=== PATIENT | male | born 1975 | race Caucasian/White ===

== ENCOUNTER 2023-09-17 13:55 | Inpatient (IN) | payer OTHER, SELFPAY ==
[2023-09-17] VITALS (11 sets, daily range): BP systolic 74–128; BP diastolic 33–64; BMI 31.5; BMI 31.2
[2023-09-17 11:20] LABS: % Basophils 0.2 % (0-2); % Eosinophils 0.2 % (0-6); % Immature Granulocytes 0.3 % (0-0.5); % Lymphocytes 12.9 % (20.5-51.1); % Monocytes 6.8 % (1.7-9.3); % Neutrophils 79.6 % (42.2-75.2); Absolute Lymphocytes 1.6 10^3/uL (1.2-3.4); Absolute Monocytes 0.8 10^3/uL (0.1-0.6); Absolute Neutrophils 9.6 10^3/uL (1.4-6.5); Hematocrit 41.4 % (39.0-52.0); Hemoglobin 14.7 g/dL (13.0-18.0); Mean Corp Hgb Conc. 35.5 g/dL (33.0-37.0); Mean Corpuscular Hgb 29.6 pg (27.0-31.0); Mean Corpuscular Volume 83.3 fL (80.0-94.0); Mean Platelet Volume 9.4 fL (7.4-10.4); Nucleated Red Blood Cells % 0 % (-); Platelet Count 236 10^3/uL (130-400); Red Blood Cell Count 4.97 10^6/uL (4.70-6.10); Red Cell Dist. Width 12.7 % (11.5-14.5)
[2023-09-17 11:31] LABS: ALT (SGPT) 19 U/L (0-50); AST (SGOT) 25 U/L (17-59); Albumin 3.9 g/dl (3.5-5.0); Alkaline Phosphatase 58 U/L (38-126); Blood Urea Nitrogen 24 mg/dl (9-20); Calcium 9.3 mg/dl (8.4-10.2); Carbon Dioxide 25 mmol/L (22-30); Chloride 106 mmol/L (98-107); Estimated Creatinine Clearance 99 ml/min; Glucose 111 mg/dl (70-99); Potassium 4.2 mmol/L (3.5-5.1); Sodium 136 mmol/L (135-145); Total Bilirubin 1.1 mg/dl (0.2-1.3); Total Protein 6.5 g/dl (6.3-8.2); eGFR > 60.00
[2023-09-17 11:33] LABS: D-Dimer 0.44 ug/mlFEU (0.00-0.50)
[2023-09-17 11:44] LABS: COVID-19 Antigen Negative (Negative)
[2023-09-17 11:46] LABS: Troponin I 0.618 ng/ml
--- NOTE | 2023-09-17 12:34 | PHANOTE ---
09/17/2023, [facility], spoke to pt. to obtain their med. history; pt. orders his Naltrexone 50 mg online through [employer] per pt.; was not able to confirm with pharmacy fill or [facility]W.
--- NOTE | 2023-09-17 12:47 | ED.GENMED ---
History of Present Illness
General
Chief Complaint: Chest Pain
Source: patient and spouse
Exam Limitations: none
Time Seen by Provider: 09/17/23 11:18
Travel History
Have you had any contact with someone who has COVID-19?: No
Do you have any symptoms of coronavirus? Fever > 100 degrees, chills, cough, shortness of breath, sore throat, loss of taste or smell, muscle aches, or headache?: No
History of Present Illness
History of Present Illness:
47-year-old male who presents after concerned about being short of breath. He also reported chest tightness yesterday. He states yesterday he woke up and got concerned that he lost his checkbook. He ran out of the car and developed pressure
across his chest. He felt extremely short of breath and laid back down. His is a nurse noticed that his heart rate was erratic as well. The patient does have a history of hypertension but at that time he was drinking alcohol and since has
become sober and has not needed blood pressure medications. He is otherwise healthy. Today woke up and again felt short of breath. He did have a little bit of a cough last night but that is resolved today. No fevers. No hemoptysis. No some
mucus production. Patient has no further chest pain and feels better at rest. Is a little bit hypoxic on arrival and feels a little better with oxygen support. No nausea or vomiting. No back pain. He states his father had a blood clot when he
was in his 40s.
Past History
Past History
ED Past Medical History: HTN
Social History
Alcohol: Former
Phy Exam
Physical Exam
Physical Exam:
CONSTITUTIONAL Patient alert and oriented to person, place and time. Well-appearing. Vital signs reviewed.
HEAD atraumatic, normocephalic.
EYES eyelids normal to inspection, Pupils equally round and reactive to light, Extraocular muscles intact, Conjunctiva normal, Sclera normal.
NECK normal range of motion, Trachea midline, no jugular venous distention.
RESPIRATORY CHEST No respiratory distress noted, Chest expansion equal, Bilateral breath sounds clear.
CARDIOVASCULAR regular rate and rhythm, 2 out of 6 murmur noted
ABDOMEN abdomen nontender, Bowel sounds normal. No distention.
BACK normal inspection, no obvious deformities
UPPER EXTREMITY range of motion normal, Motor strength normal, no cyanosis, no edema.
LOWER EXTREMITY range of motion normal, Motor strength normal, no cyanosis, no edema.
NEURO Speech normal, No focal motor deficits, Geneva coma scale 15, Memory normal, Cranial Nerves intact to screening exam.
SKIN skin warm, dry, and normal in color.
PSYCHIATRIC patient oriented to person place and time, Normal affect.
Scores
Heart Score for Chest Pain Patients
STEMI patient?: Not applicable
Course
Orders/Labs/Results
Orders:
Orders
09/17/23 10:29
ECG [Electrocardiogram (*1)] Urgent
Reason for Study: Chest Pain
EKG- Treatment ONCE
09/17/23 11:02
Complete Blood Count/With Diff Urgent
Comprehensive Metabolic Panel Urgent
NT-proBNP Urgent
Troponin I Urgent
09/17/23 11:04
COVID-19 Antigen Urgent
Source: Nasal Swab
09/17/23 11:13
D-Dimer Urgent
PTT Urgent
Comment: ADD ON
09/17/23 11:14
CXR2 [CR Chest - 2 Views ] Urgent
Comment:
Reason For Exam: SOB
09/17/23 11:38
CT Chest Pe Study Urgent
Comment:
Reason For Exam: sob, fam hx of PE.
09/17/23 11:39
Electrocardiogram (*1) Stat
Reason for Study: Other
Other Reason for Exam: chest pain
EKG- Treatment ONCE
09/17/23 12:19
Heparin 4,000 units IV NOW STA
Nursing to Place Non Medication Order As Directed
Physician Order: PTT 6 hours after initial start of Heparin infusion
Above order entered?: Yes
09/17/23 12:30
Add On- LAB Stat
Tests Added?: BNP
Heparin 86780 Units/250 ml 25,000 units in 250 ml IV PER PROTOCOL
Weight to be used for heparin protocol in kilograms (kg):: 111.13
Protocol:: Cardiac Tx/Acute Coronary
PTT Goal Range to be used:: PTT 73 to 111 seconds
Order type:: Initial
INITIAL Infusion Dose (UNITS/KG/hr) & then follow protocol:: 12 units/kg/hr
Infusion Dose in UNITS/hr & then follow protocol (UNITS/hr):: 1,000
INFUSION RATE in mL/hr & then follow protocol (mL/hr):: 10
PTT less than or equal to 64 seconds:: Increase rate by 200 units/hr (+ 2 mL/hr)
PTT 64.1 to 72.9 seconds:: Increase rate by 100 units/hr (+ 1 mL/hr)
PTT 73 to 111 seconds:: Target Range. No change in rate.
PTT 111.1 to 130.9 seconds:: Decrease rate by 100 units/hr (- 1 mL/hr)
PTT 131 to 199.9 seconds:: HOLD for 1 hr. Then decrease rate by 200 units/hr (- 2 mL/hr)
PTT greater than or equal to 200 seconds:: HOLD for 2 hrs & Notify Provider. Then decrease by 200 units/hr (-
2 mL/hr)
Lab follow-up:: Each change, PTT q6h until 2 consecutive are therapeutic. Then PTT
daily.
09/17/23 12:54
Add On- LAB Urgent
Tests Added?: PTT
09/17/23 13:28
Admit/Transfer Patient As Directed
Co-Sign Provider:
Level of Care: Inpatient admission
Assign to:: IVU
Physician / Group: meagan soto
Diagnosis: cp concer USA, new cardiac murmur,hypoxic reesp insuff
Reason for Hospitalization: cp concer USA, new cardiac murmur,hypoxic reesp insuff
Expected length of stay greater than two midnights?: Yes
ELOS- Estimated Length of Stay in days: 4
I certify the patient meets the requirements for IP care: Yes
Code Status As Directed
Resuscitation Status: Full Code
CARDIOLOGY CONSULT Routine
Consulting Provider: Donis Cabral
Was physician already notified: Yes
Reason for consult: cp concern usa, new cardiac murmur
09/17/23 13:44
Echo 2D MMode Color/Doppler Urgent
Reason for Study: hypoxia , cardiac murmur
09/17/23 13:45
Echo 2D MMode Color/Doppler Routine
Reason for Study: cardiac murmur, hypoxia
09/17/23 14:03
Procalcitonin Urgent
PCT Algorithmm Indication: Respiratory
Troponin I Routine
09/17/23 14:54
Acetaminophen [Tylenol] 650 mg PO DAILYPRN PRN
Bisacodyl [Dulcolax] 10 mg RECTAL [id number] PRN
Docusate W/Senna [Senokot-S] 1 tablet PO BIDPRN PRN
Polyethylene Glycol Powder [Miralax] 17 grams PO DAILYPRN PRN
09/17/23 14:54
VTE Contraindication Routine
VTE Mechanical Device Contraindication: Medical Contraindication
Pharmocologic Contraindication: Medical Contraindication
Comment: pt on iv heparin
Heparin Protocol- PTT Orders As Directed
PTT per Heparin protocol: -Obtain CBC and baseline PTT - if not already collected.
-Obtain PTT 6 hours from start of infusion. Then, every 6 hours until 2 consecutive
PTT's are therapeutic. Then, PTT Daily.
-With each rate change, obtain PTT every 6 hours until 2 consecutive PTT's are
therapeutic. Then, PTT Daily.
Activity As Directed
Activity Level: As Tolerated
Intake/ Output As Directed
Frequency: Per unit guidelines
Notify MD As Directed
Notify physician if: PTT is greater than or equal to 200.
Vital Signs As Directed
Frequency: Per unit guidelines
Weight As Directed
Frequency: Daily
O2 Therapy [RESP] Routine
Nasal Cannula Liter Flow: 2 LPM
Titrate/Wean O2 to maintain O2 sat greater than (%): 92
Pulse Ox/spot Check [RESP] Routine
Quantity: 1
Ot Eval And Treat Routine
Pt Eval And Treat Routine
Activity Level: As Tolerated
09/17/23 19:30
PTT Routine
09/17/23 20:00
Troponin I Q6H
09/18/23 06:00
Cardiovascular Evaluation IN AM
Complete Blood Count/With Diff IN AM
Comprehensive Metabolic Panel IN AM
09/19/23 06:00
Complete Blood Count/No Diff Q2D
Comment: notify provider: Platelet count < 130,000 or decrease by 50% from baseline
Complete Blood Count/With Diff IN AM
Comprehensive Metabolic Panel IN AM
09/20/23 06:00
Complete Blood Count/With Diff IN AM
Comprehensive Metabolic Panel IN AM
09/21/23 06:00
Complete Blood Count/No Diff Q2D
Comment: notify provider: Platelet count < 130,000 or decrease by 50% from baseline
Complete Blood Count/With Diff IN AM
Comprehensive Metabolic Panel IN AM
09/23/23 06:00
Complete Blood Count/No Diff Q2D
Comment: notify provider: Platelet count < 130,000 or decrease by 50% from baseline
09/25/23 06:00
Complete Blood Count/No Diff Q2D
Comment: notify provider: Platelet count < 130,000 or decrease by 50% from baseline
09/27/23 06:00
Complete Blood Count/No Diff Q2D
Comment: notify provider: Platelet count < 130,000 or decrease by 50% from baseline
09/29/23 06:00
Complete Blood Count/No Diff Q2D
Comment: notify provider: Platelet count < 130,000 or decrease by 50% from baseline
10/01/23 06:00
Complete Blood Count/No Diff Q2D
Comment: notify provider: Platelet count < 130,000 or decrease by 50% from baseline
10/03/23 06:00
Complete Blood Count/No Diff Q2D
Comment: notify provider: Platelet count < 130,000 or decrease by 50% from baseline
Abnormal Lab Results
09/17/23 09/17/23
11: 11:13
WBC 12.0 H 10^3/uL
(4.8-10.8)
Absolute Neuts (auto) 9.6 H 10^3/uL
(1.4-6.5)
Absolute Monos (auto) 0.8 H 10^3/uL
(0.1-0.6)
Neutrophils % 79.6 H %
(42.2-75.2)
Lymphocytes % 12.9 L %
(20.5-51.1)
APTT 35.6 H Sec
(23.4-35.0)
BUN 24 H mg/dl
(9-20)
Glucose 111 H mg/dl
(70-99)
Troponin I 0.618 H* ng/ml
09/17/23 11:02
09/17/23 11:02
Vital Signs
Initial and Last Documented VS:
Initial Vital Signs
Temp Pulse Resp BP
97.8 F 116 20 103/64
09/17/23 10:27 09/17/23 10:27 09/17/23 10:27 09/17/23 10:27
Last Documented Vital Signs
Temp Pulse Resp BP Pulse Ox
99.3 F 86 16 121/47 96
09/17/23 15:27 09/17/23 15:30 09/17/23 15:27 09/17/23 15:27 09/17/23 15:27
MDM/Problems Addressed
Differential Diagnosis Includes:
Acute IL, ACS, unstable angina, pulmonary embolism, pneumothorax, pneumonia, aortic dissection
MDM/Problems Addressed:
Hypoxia, SVT, unstable angina NSTEMI
*Radiology
Radiology exam reviewed: preliminary read by ED provider (No obvious large vessel pulmonary embolism) and radiology read reviewed
*Pulse Oximetry
Patient hypoxic: yes
*EKG
Interpreted by ED Provider?: Yes
Interpretation: abnormal
Rate: tachycardiac
Rhythm: sinus
Ischemia: ST depression (Suspected in lateral leads)
*Insurance Customer Service Specialist Interpretation
Rate: tachycardiac
Interpretation: abnormal
Rhythm: SVT
*Critical Care Note
Total Time (30-74mins, 75-104mins- exclusive of procedures): 60 minutes
Data Reviewed
Source: patient and spouse
Prescriptions/Medications Considered But Not Given:
Consider beta-blockade but heart rate at rest is normal blood pressure okay.
Patient Management
Discussion with other providers: Hospitalist and Pattern Molder (Case discussed with Dr. Cabral.)
Escalation/DeEscalation of care consider admission/obs:
38-year-old male presented to develop chest pain shortness of breath yesterday and shortness of breath worsened over the last night with some chest pain today. Initial EKG showed a little bit of ST depression laterally. Repeat EKG is actually low
but improved. Did have a run of what looks like SVT that was brief on telemetry. CT without pulmonary embolism. Does not have history consistent with pneumonia as radiology does read possible pneumonia. Question whether this could be CHF. May
benefit from echocardiogram given murmur. Cardiology to evaluate. IV heparin. Admit
ED Attending Note
-
Portions of this chart may have been created with voice recognition software.� Occasional wrong word or��sound alike� substitutions may have occurred due to the inherent limitations of voice recognition software.
Discharge Plan
Departure
Patient Disposition: Admit
Date of Disposition: 09/17/23
Time of Disposition: 12:47
Admit to: Telemetry
Presentation/result/management discussed w/ accepting MD/DO: Hospitalist
Discharge Problem:
Unstable angina, Tachyarrhythmia, Hypoxia
Interventions
Interventions:
*Risk Screen - Suicide Last Done: 09/17/23 10:55
*General Assessment Last Done: 09/17/23 10:56
*Neglect/Abuse Screening Last Done: 09/17/23 10:55
ED- Fall Risk Assessment Last Done: 09/17/23 10:53
*ED COVID-19 Vaccine History Last Done: 09/17/23 10:27
*Nursing Disposition Last Done: 09/17/23 14:50
ED- Cardiac Assessment Last Done: 09/17/23 10:58
Discharge Date and Time
Discharge Date/Time: 09/17/23 14:54
--- NOTE | 2023-09-17 13:00 | HPS.HSE ---
Family Physician
-
Family Physician: NOT KNOW UNKNOWN - PT DOES
Chief Complaint
-
Chest pain, shortness of breath, MATHIS
History of Present Illness
47-year-old male complaining of chest tightness midsternal to both arms with diaphoresis and nausea yesterday after running to the car looking for his checkbook he thought he lost. He reports having dyspnea on exertion came in the house and went to
lay back down. 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 His believes the entire episode lasted approximately 20 minutes. He has past medical history of
hypertension but at the time was drinking alcohol and became sober over the last 101 days and no longer needed BP meds. This a.m. he reports feeling short of breath upon wakening with some midsternal chest pressure. On arrival to the ER his pulse
ox is 89% on room air and 93% on 2 L nasal cannula. He denies any recent illness, sore throat fever, chills, palpitations, shortness of breath, cough, abdominal pain, nausea, vomiting, diarrhea, urinary symptoms. He has past medical history of
hypertension, alcohol abuse currently sober 101 days, sleep apnea noncompliant with CPAP
Medical History
Past Medical History
Past Medical History: Reports Other
Additional Past Medical History:
hypertension
alcohol abuse currently sober 101 days
sleep apnea noncompliant with CPAP
diverticulitis mid 30s
Anxiety
Past Surgical History: Reports Other (Deviated septum repair, EGD/[place] mid 30s)
Social History
Tobacco: Non-smoker
Alcohol: Former (Sober 101 days from prior daily vodka)
Drug: None
Personal:
Living: With Family ()
Employment: Employed
Family History
Family History: Other (Father age 45 PE, history lung cancer, mother Parkinson's, brother living history sleep apnea)
Allergies / Home Medications
Allergies reflects when Allergies were last updated in [employer].
Home Medications with original date entered in [employer]
Allergy/Medication List:
Allergies
Allergy/AdvReac Type Severity Reaction Status Date / Time
shrimp Allergy throat Verified 09/17/23 10:54
swelling
Home Medications
acetaminophen 325 mg tablet (Tylenol) 650 mg PO DAILYPRN PRN mild pain 09/17/23
naltrexone 50 mg tablet 50 mg PO QPM 09/17/23
naproxen sodium 220 mg capsule (Aleve) 440 mg PO DAILY PRN mild pain 09/17/23
Review of Systems
-
History Source: Patient and Family ( at bedside)
A 12 point ROS was completed and negative except as noted: Yes
Constitutional: Denies Fever, Fatigue or Chills
EENT: Denies Sore Throat or Runny Nose
Respiratory: Reports Trouble Breathing (MATHIS); Denies Cough
Cardiac: Reports Chest Pain, Diaphoresis and Palpitations; Denies Syncope
Abdomen/GI: Reports Nausea; Denies Abdominal Pain, Vomiting, Diarrhea, Constipated, Bloody Stools or Black Stools
: Denies Dysuria, Frequency, Flank Pain, Incontinence, Difficulty Voiding or Urgency
Musculoskeletal: Denies Joint Pain or Edema
Skin: Denies Itching or Rash
Neurological: Denies Dizzy, Headache or Weakness
Endocrine: Reports No Symptoms
Hematologic/Lymphatic: Reports No Symptoms
Psych: Reports Calm
Physical Exam
Vital Signs
Vital Signs
Temp Pulse Resp BP Pulse Ox
97.8 F 91 18 121/54 93
09/17/23 10:27 09/17/23 12:15 09/17/23 12:15 09/17/23 11:00 09/17/23 12:15
Physical Exam
General: No Apparent Distress, Comfortable and Conversant; No Pain, Fever or Chills
HEENT: NormoCephalic, Anicteric, Moist mucous membranes, PERRLA, [place] Conjunctivae, No Ptosis and Neck Nontender; No Pharyngeal Efythema
Cardiac: S1/S2, Regular Rhythm (With PACs) and Murmur (Holosystolic murmur 4/6 loudest at tricuspid area); No Rub, Gallop or Peripheral Edema
Breast: Deferred by me
GI: Soft, Non Tender, Non Distended, Normal Bowel Sounds and No Hepatosplenomegaly
Rectal: Deferred by Provider
Genito-urinary: Deferred by me
Musculoskeletal: No Clubbing, No Cyanosis and No Edema
Skin: Warm and Dry; No Rash
Neuro: AO x 3, No Motor Deficits, Nonfocal/grossly intact, Cranial Nerves Intact and No Sensory Deficits; No Slurred Speech, Facial Droop or Tremors
Psych: Calm
Laboratory Results
-
09/17/23 11:02
09/17/23 11:02
Laboratory Results
APTT Cancelled 09/17/23 12:19
Total Bilirubin 1.1 mg/dl (0.2-1.3) 09/17/23 11:02
AST 25 U/L (17-59) 09/17/23 11:02
ALT 19 U/L (0-50) 09/17/23 11:02
Alkaline Phosphatase 58 U/L (38-126) 09/17/23 11:02
Troponin I 0.618 ng/ml H* 09/17/23 11:02
Data Reviewed
-
CT Scan: Report Reviewed by me
Lab Data: Labs Reviewed by me
Impression/Plan
-
Impression/plan:
Admit to IVU
#Chest pain concern USA
COVID-negative
Troponin 0.618, will trend
-IV heparin drip
-Follow EKG
-Consult cardiology
-Check urine drug screen
EKG: Sinus rhythm with PVCs 92 bpm, QTc 472 MS, incomplete RBBB
#Acute hypoxic respiratory insufficiency 2/2 possible NEW CARDIAC MURMUR versus possible right PNA
89% RA, 93% 2 L nasal cannula
-WBC 12 no left shift, afebrile, nontoxic-appearing,BNP 2470
-Hold on current antibiotics pending Pro-Kennedy
-Check Pro-Kennedy
-Check 2D echo
CT PE study:
1. No evidence of PE
2. Mild pneumonia throughout the right lung
3. Small right and trace left pleural effusions
#Hx of Sleep apnea noncompliant with CPAP
#Alcohol abuse currently sober 101 days
-Prior vodka use daily
-Patient reports uses naltrexone 50 mg every afternoon to stop drinking
#Anxiety hx
#Diverticulitis Hx mid 30s
-Prior history of EGD [place]
DVT prophylaxis
Patient on current IV heparin
Full code
[2023-09-17 13:06] LABS: NT-proBNP 2470 pg/ml
[2023-09-17 13:08] LABS: APTT 35.6 Sec (23.4-35.0)
[2023-09-17] MEDS: HEPARIN 4000 UNITS IV (13:18)
[2023-09-17] MEDS: HEPARIN 25000 UNITS/250 ML IV (13:18)
--- NOTE | 2023-09-17 13:57 | W.PN.UPDATE ---
Update Note
Progress Note Update
This note is in addition to H&P
I saw and examined the patient.
The THERAPY TECH or PA's note was reviewed and I agree with the note.
Comment: 47-year-old male with past medical history of drug use (long time ago), alcohol came to the hospital with shortness of breath. Elevated BNP and troponin ED. Trend troponin. EKG with nonspecific ST abnormality. Cardiology evaluation.
Echo. Admit to IVU. Start heparin drip. CT chest with possible pneumonia, check procal. If Pro-Kennedy elevated then start antibiotics.
General: No Apparent Distress, Comfortable
HEENT: NormoCephalic, Anicteric
Cardiac: S1/S2, Regular Rhythm and Murmur (Holosystolic murmur 4/6 loudest at tricuspid area)
Breast: Deferred by me
GI: Soft, Non Tender, Non Distended, Normal Bowel Sounds and No Hepatosplenomegaly
Rectal: Deferred by Provider
Genito-urinary: Deferred by me
Musculoskeletal: No Edema
Neuro: AO x 3, No Motor Deficits, Nonfocal/grossly intact
Psych: Calm
I spent a total of 78 minutes with the patient or on the floor. More than 50% of this time involved counseling and coordination of care.
[2023-09-17 15:07] LABS: Procalcitonin < 0.05 ng/ml (0.0-0.25)
--- NOTE | 2023-09-17 15:24 | PTCARENOTE ---
Patient arrived from ER, monitor placed, NSR, VSS although low grade temp. 99.3. patient has no CP but does admit being SOB. o2 2LNC o2 sat 96%, lung castillo clear. IV heparin @ 1000units/hr via right ant. oriented to room and surroundings. Echo
being completed at bedside.
--- NOTE | 2023-09-17 16:55 | W.PN.CD ---
Today's Communication / Plan
-
.
Impression / Plan
-
Impression: 47M with subacute onset of chest pain and dyspnea. EKG unremarkable, troponin 0.7, and exam/echocardiogram shows severe AI without LV dilation.
Plan
CP/dyspnea - suspect this is chronic AI and CAD or more acute AI. Neither fits perfectly.
- ASA/UFH
- statin
- check Blood cultures (no signs/symptoms of IE)
- Lasix 20 IV x 1
- CT reviewed with radiology and aortic root is 4.4 cm
- [facility] tomorrow with tentative LHC afterward
- Lipid panel AM
Prior HTN
Prior alcoholism
DAVID/CPAP
Subjective: Dictated
TTE Sep 14: Hyperdynamic LVEF, severe AI and dilated aortic root
Physical Exam
Vital Signs/Labs
Vital Signs
Temp Pulse Resp BP Pulse Ox
37.4 C 86 16 121/47 96
09/17/23 15:27 09/17/23 15:30 09/17/23 15:27 09/17/23 15:27 09/17/23 15:27
09/16/23 09/17/23 09/18/23
06:59 06:59 06:59
Actual Weight 243 lb 2.718 oz
09/17/23 11:02
09/17/23 11:02
APTT Cancelled 09/17/23 12:19
09/17/23
11:02
Cgu-R-Rhdapxeopdy Pept 2470
LAB Results
09/17/23 09/17/23
11:02 14:03
Troponin I 0.618 H* 0.710 H*
Data Reviewed
-
Date of Service: September 17, 2023
[2023-09-17] MEDS: LIPITOR 40 MG PO (17:14)
[2023-09-17] MEDS: LASIX 20 MG IV (17:14)
[2023-09-17 20:46] LABS: Troponin I 0.526 ng/ml
[2023-09-18] VITALS (14 sets, daily range): BP systolic 113–144; BP diastolic 49–73; BMI 31.2
--- NOTE | 2023-09-18 00:12 | PTCARENOTE ---
Pt rec'd at change of shift awake,alert no c/o cp. Pt does c/o sob with activity only. 2 lit n/c 95%, clear throughout. Sinus on telemetry. Heparin drip adjusted for ptt 40. Currently infusing at 1200 unit/hr. Pt aware of npo status mn for [facility]. call
irvin within reach.
--- NOTE | 2023-09-18 04:18 | PTCARENOTE ---
Pt reports no c/p still with sob with exertion. freq dry cough noted this morning. wt unchanged from adm wt. am labs drawn. Pt aware to remain npo for [facility] this morning.
[2023-09-18 04:28] LABS: % Basophils 0.5 % (0-2); % Eosinophils 0.7 % (0-6); % Immature Granulocytes 0.3 % (0-0.5); % Lymphocytes 18.1 % (20.5-51.1); % Monocytes 6.4 % (1.7-9.3); Absolute Basophils 0.1 10^3/uL (0-0.2); Absolute Eosinophils 0.1 10^3/uL (0-0.7); Absolute Lymphocytes 1.9 10^3/uL (1.2-3.4); Absolute Monocytes 0.7 10^3/uL (0.1-0.6); Absolute Neutrophils 7.8 10^3/uL (1.4-6.5); Hematocrit 39.3 % (39.0-52.0); Hemoglobin 13.8 g/dL (13.0-18.0); Mean Corp Hgb Conc. 35.1 g/dL (33.0-37.0); Mean Corpuscular Hgb 29.4 pg (27.0-31.0); Mean Corpuscular Volume 83.8 fL (80.0-94.0); Mean Platelet Volume 9.6 fL (7.4-10.4); Nucleated Red Blood Cells % 0 % (-); Platelet Count 219 10^3/uL (130-400); Red Blood Cell Count 4.69 10^6/uL (4.70-6.10); Red Cell Dist. Width 12.6 % (11.5-14.5); White Blood Cell Count 10.5 10^3/uL (4.8-10.8)
[2023-09-18 04:45] LABS: APTT 48.2 Sec (23.4-35.0)
[2023-09-18 04:52] LABS: ALT (SGPT) 16 U/L (0-50); AST (SGOT) 23 U/L (17-59); Albumin 3.6 g/dl (3.5-5.0); Alkaline Phosphatase 56 U/L (38-126); Blood Urea Nitrogen 25 mg/dl (9-20); Calcium 8.8 mg/dl (8.4-10.2); Carbon Dioxide 26 mmol/L (22-30); Chloride 102 mmol/L (98-107); Estimated Creatinine Clearance 98 ml/min; Glucose 113 mg/dl (70-99); HDL Cholesterol 34 mg/dl; LDL Cholesterol, Calculated 80 mg/dl; Sodium 136 mmol/L (135-145); Total Cholesterol 148 mg/dl (50-199); Total Protein 6.3 g/dl (6.3-8.2); Triglyceride 171 mg/dl (10-149); Very Low Density Lipoprotein 34 mg/dl (0-30); eGFR > 60.00
--- NOTE | 2023-09-18 07:51 | W.PN.HOSP.TC ---
Today's Communication/Plan
-
Continue heparin drip
For presumptive transesophageal echo after results of 2D echocardiogram noted
Management of severe aortic regurg as per cardiology
Do not think pneumonia is a valid diagnosis in this setting and would defer antibiotics
Assessment / Plan
Assessment / Plan
47-year-old male complaining of chest tightness midsternal to both arms with diaphoresis and nausea yesterday after running to the car looking for his checkbook he thought he lost. He reports having dyspnea on exertion came in the house and went to
lay back down. 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 His believes the entire episode lasted approximately 20 minutes. He has past medical history of
hypertension but at the time was drinking alcohol and became sober over the last 101 days and no longer needed BP meds. This a.m. he reports feeling short of breath upon wakening with some midsternal chest pressure. On arrival to the ER his pulse
ox is 89% on room air and 93% on 2 L nasal cannula. He denies any recent illness, sore throat fever, chills, palpitations, shortness of breath, cough, abdominal pain, nausea, vomiting, diarrhea, urinary symptoms. He has past medical history of
hypertension, alcohol abuse currently sober 101 days, sleep apnea noncompliant Elevated BNP and troponin ED. Trend troponin. EKG with nonspecific ST abnormality.
Cardiology evaluation.
Echo. Admit to IVU. Start heparin drip.
CT chest with possible pneumonia, check procal. If Pro-Kennedy elevated then start antibiotics.
#Chest pain concern USA
COVID-negative
Troponin 0.618, will trend
-IV heparin drip
-Follow EKG
-Consult cardiology
-Check urine drug screen
EKG: Sinus rhythm with PVCs 92 bpm, QTc 472 MS, incomplete RBBB
#Acute hypoxic respiratory insufficiency 2/2 possible NEW CARDIAC MURMUR versus possible right PNA
89% RA, 93% 2 L nasal cannula
-WBC 12 no left shift and resolved overnight, afebrile, nontoxic-appearing
-,BNP 2470/troponin trending down from 0.7
-Hold on current antibiotics as Pro-Kennedy within normal limits
-Check 2D echo/notes Severe aortic regurgitation and a dilated aortic root
-Continue heparin drip
CT PE study:
1. No evidence of PE
2. Mild pneumonia throughout the right lung/doubt significance
3. Small right and trace left pleural effusions
-Will await cardiology input and further diagnostic evaluation with BROOKLYNN/cardiac cath?
#Hx of Sleep apnea noncompliant with CPAP
#Alcohol abuse currently sober 101 days
-Prior vodka use daily
-Patient reports uses naltrexone 50 mg every afternoon to stop drinking
#Anxiety hx
#Diverticulitis Hx mid 30s
-Prior history of EGD [place]
DVT prophylaxis
Patient on current IV heparin
Full code
Anticipated Discharge: 24 - 48 hours
Subjective/Interval History
-
Date of Service: September 18, 2023
Still admits to some shortness of breath mild cough/denies any febrile course in the last month
Objective Data
-
Labs:
Laboratory Results
09/17/23 09/18/23 09/18/23
19:54 04:09 12:00
WBC 10.5
Hgb 13.8
Hct 39.3
Plt Count 219
APTT 40.0 H 48.2 H Pending
Sodium 136
Potassium 4.0
Chloride 102
Carbon Dioxide 26
BUN 25 H
Creatinine 1.2
Glucose 113 H
Calcium 8.8
Total Bilirubin 1.0
AST 23
ALT 16
Alkaline Phosphatase 56
Vital Signs:
Vital Signs
Temp Pulse Resp BP Pulse Ox
98.9 F 108 24 132/59 94
09/18/23 04:00 09/18/23 04:15 09/18/23 04:00 09/18/23 04:01 09/18/23 04:01
I&O
09/17/23 09/18/23 09/19/23
06:59 06:59 06:59
Intake Total 238 / 238
Output Total 1150 / 1150
Balance -912 / -912
Review of Systems
-
History Source: Patient
Constitutional: Reports Fatigue
Respiratory: Reports Trouble Breathing
Cardiac: Reports Chest Pain
Physical Exam
-
General: Well Developed
HEENT: Normocephalic
Respiratory: Clear to Auscultation
Cardiac: Regular Rhythm, S1/S2 and Murmur (Holosystolic)
Skin: Warm
Neuro: Awake, Alert, Oriented and AO x 3
Psych: Calm, Confused and Agitated
Data Reviewed
-
Total Time Spent with Patient (in minutes): 45
Labs: Labs Reviewed by me
--- NOTE | 2023-09-18 08:17 | PTCARENOTE ---
Addendum entered by Leann Gonzalez RN 09/18/23 08:43:
2nd SL Ntg. given with relief. patient is anxious and HR in the 150's, at bedside. Dr. Awad in room getting consent for heart cath.
Original Note:
patient called out c/o chest pain, BP 128/59, HR 97, patient stated it is a 3 out of 10 radiating to left arm down to elbow, [facility] [employer] aware, up to unit to see patient, ordered SL Ntg. given one as ordered with some relief.
[2023-09-18] MEDS: NITROSTAT (SUBLINGUAL) 0.400000000000000022 MG SL ×2 (08:20→08:25)
--- NOTE | 2023-09-18 09:43 | PTCARENOTE ---
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
--- NOTE | 2023-09-18 12:38 | W.PN.CD ---
Addendum entered and electronically signed by Jeffry Awad DO 09/18/23 16:10:
Cardiac catheterization shows no CAD.
There is moderate (at least) aortic root dilation with severe aortic valve insufficiency.
CT surgery consult.
Original Note:
Today's Communication / Plan
-
[facility].
Impression / Plan
-
Impression/Plan: 47M with subacute onset of chest pain and dyspnea, abnormal troponin and new, severe aortic insufficiency.
#CP/dyspnea
-Suspect this is chronic AI and CAD or more acute AI. Neither fits perfectly.
-Troponin 0.618 --> 0.710 --> 0.526.
-BROOKLYNN this morning confirms severe AI. Perhaps, there is a small echodensity in between the left/non-coronary cusps (does not seem to correlate with severity of AI). AI is likely functional from aortic root/annulus dilation.
-[facility] today to clarify coronary anatomy, both as a primary cause but also as a preamble to valve repair/replacement.
#Prior HTN
-Chronic, stable.
#Prior alcoholism
-Chronic, stable.
-Continued sobriety encouraged.
#DAVID/CPAP
Subjective/Interval History:
The patient developed some chest pressure assocated with elevated HR this morning.
SL nitro relieved discomfort.
BROOKLYNN confirmed aortic annular dilation, severe AI. It could not absolutely r/o IE as there is a small echo density in between the left/non coronary cusps.
DATA:
TTE, 09/17/2023:
CONCLUSIONS
Hyperdynamic systolic function. Left ventricular ejection fraction is 65-70%.
Severe aortic regurgitation. The aortic valve does not appear to coapt.
Dilated aortic root (4.8 cm) with normal ascending aorta
No prior study available for comparison.
CTPA, 09/17/2023:
IMPRESSION:
1. No evidence of pulmonary embolism.
2. Mild pneumonia throughout the right lung.
3. Small right and trace left pleural effusions.
~~REPORT ADDENDUM~~
The aortic root measures up to 4.4 cm.
Physical Exam
Vital Signs/Labs
Vital Signs
Temp Pulse Resp BP Pulse Ox
36.8 C 105 16 130/56 94
09/18/23 08:00 09/18/23 09:45 09/18/23 08:00 09/18/23 08:30 09/18/23 08:00
09/17/23 09/18/23 09/19/23
11:59 11:59 11:59
Actual Weight 111.13 kg 110.3 kg
09/18/23 04:09
09/18/23 04:09
APTT 48.2 Sec (23.4-35.0) H 09/18/23 04:09
Triglycerides 171 mg/dl (10-149) H 09/18/23 04:09
LDL Cholesterol, Calc 80 mg/dl 09/18/23 04:09
VLDL Cholesterol, Calc 34 mg/dl (0-30) H 09/18/23 04:09
HDL Cholesterol 34 mg/dl 09/18/23 04:09
09/17/23
11:02
Xvk-Y-Bvyhzgvyiob Pept 2470
LAB Results
09/17/23 09/17/23 09/17/23
11:02 14:03 19:54
Troponin I 0.618 H* 0.710 H* 0.526 H* D
Physical Exam
Constitutional: No acute distress and Comfortable
EENT: Anicteric and Moist mucous membranes
Cardiovascular: Rhythm & rate is regular, Pedal edema is absent, JVD pressure is normal, Diastolic murmur present and S1S2 is normal
Respiratory: Respiratory effort normal and Other (Decreased throughout.)
GI: Soft, Distention absent, Flat, Non tender and Normal bowel sounds
Neuro/Psych: AO x 3
Data Reviewed
-
Date of Service: September 18, 2023
Medical Decision Making: Reviewed Test Results, Independent Historian Assessment, Test Interpretation and Review of Case with other Provider
EKG: Tracing Personally Visualized and interpreted and Report Reviewed by me
Echo: Tracing Personally Visualized and interpreted and Report Reviewed by me
X-Ray/CT/US/MRI/NUC/PET: Image Personally Visualized and interpreted and Report Reviewed by me
Medical Tests (PFT, Pathology etc): Report Reviewed by me
Labs: Labs Reviewed by me
--- NOTE | 2023-09-18 13:04 | ITS.CL.CATH ---
Program Architect - Catheterization
Cardiac Catheterization
Procedure Report:
CARDIAC CATHETERIZATION REPORT
Date of Procedure: 09/18/2023
Referring: Donis Cabral M.D.
INDICATION: Severe aortic insufficiency.
PROCEDURE:
1. Left heart catheterization.
2. Coronary angiography
3. Aortography.
ACCESS:
6 Cymro right right artery.
CATHETERS:
1. 5 Cymro JR4.
2. 5 Cymro JL 3.5.
3. 5 Cymro straight pigtail.
HEMODYNAMIC DATA
Weight (kg): 110.2
AO (s/d/x, mmHg): 107/66/82
LV (s/x mmHg): 112/25 (rapid upward slope from 5 mmHg, A wave to 45 mmHg)
LEFT VENTRICULOGRAPHY: Not performed.
Aortography: Performed in an AMERICAN projection. The aortic root is moderate to severely dilated. The ascending aorta appears mildly dilated. There is no atherosclerosis observed. There is severe aortic valve insufficiency.
CORONARY ANGIOGRAPHY
Dominance: Right.
Left Main: Large size, trifurcating vessel. There is no significant coronary disease.
LAD: Normal size vessel giving rise to 1 significant diagonal. There are minor luminal irregularities.
Ramus: Medium to large size vessel supplying majority of the lateral wall. There are minor luminal irregularities.
Circumflex: Normal size, nondominant vessel giving rise to a single obtuse marginal. There are minor luminal irregularities.
RCA: Large size, dominant vessel with a large RPDA. There are minor luminal irregularities.
INTERVENTION(S)
None.
Closure Device: Vascular band.
Radiation (mGy): 411.99
DAP (cm2.Gy): 28.5622
Fluoroscopy time (minutes): 2.2
Sedation time (minutes): 33
CONCLUSIONS
1. Right dominant circulation with minor luminal irregularities throughout the entire coronary tree.
2. Moderate to severe aortic root dilation.
3. Severe aortic valve insufficiency.
4. Severely elevated filling pressures (LVEDP = 25 mmHg) with a rapid upward slope from the LV diastolic pressure of 5 mmHg, consistent with severe aortic valve insufficiency as well as evidence of diastolic dysfunction (A wave to 45 mmHg).
RECOMMENDATIONS:
1. Expectant management after cardiac catheterization via right radial approach.
2. Limited weight bearing on the right wrist for one week.
3. Primary prevention with high-dose, high potency statin.
4. Consultation with CT surgery regarding aortic valve and aortic root repair/replacement.
Copy to: Donis Cabral M.D.
Jeffry Awad DO, FACC, FACP
--- NOTE | 2023-09-18 14:28 | CM ---
Reviewed chart. Met with Mr. Rodríguez to review discharge plans. He states prior to admission he resides with his significant other in a two story home with two steps to enter. He states he has a full flight of steps to get to bedroom. He states he
has a bathroom on the firt and second floor. He states prior to admission he was independent with ambulation and adls. He states he does not have any DME in the home. He states he has a prescription plan and uses [facility]. Medical
work-up in progress. The discharge plan is to return home with his significant other when medically stable.
--- NOTE | 2023-09-18 16:02 | CONSULT.CT ---
Addendum entered and electronically signed by SEFERINO Davis 09/18/23 17:07:
STS RISK SCORE
Procedure Type:�Isolated AVR
PERIOPERATIVE OUTCOME ESTIMATE %
Operative Mortality 0.861%
Morbidity & Mortality 6.9%
Stroke 0.698%
Renal Failure 1.04%
Reoperation 2.8%
Prolonged Ventilation 4.54%
Deep Sternal Wound Infection 0.075%
Long Hospital Stay (>14 days) 6.75%
Short Hospital Stay (<6 days)* 40.9%
Clinical Summary
Planned Surgery: Isolated AVR, Urgent, First cardiovascular surgery
Demographics: 47 year old, White, male, 110kg, 188cm, BMI: 31.1 kg/m�
Lab Values: Creatinine: 1.2 mg/dL, Hematocrit: 39.3%, WBC Count: 10.5 10�/�L, Platelet Count: 027872 cells/�L
Substance Abuse: Former smoker, Illicit Drug Use
Risk Factors / Comorbidities: Hypertension
Cardiac Status: Acute heart failure, NYHA Class III, Ejection Fraction = 67%
Coronary Artery Disease: No coronary symptoms
Valve Disease: Severe AR, Trivial/Trace MR, Trivial/Trace TR
Original Note:
Consultation
-
Date/Time Consultation Requested: 09/17
Date/Time Consultation Performed: 09/17
Requesting Provider: Dr Jeffry taylor
Performing Provider: Denny Nath for Dr. Cesar Jones
Reason for Consultation: svere AI
Patient History
Physicians
Outpatient Hplc Chemist: none prior
Inpatient Hplc Chemist: Donis Cabral
History of Present Illness
47-year-old male without significant PMH, was admitted 09/17/23 report of midsternal chest pressure while running to his car. Symptoms abated after 20 minutes of rest. Symptoms recurred later that evening with patient experiencing sudden
onset shortness of breath and mid sternal chest pain. Initial ECG reported sinus rhythm with PACs and occasional PVCs, maximum troponin was 0.7 and proBNP is 2470. SPO2 89% on R/A and improved to 92% on 2L NC. CT chest (PE study) ruled out pulmonary
emboli. Diuresed with Lasix 20mg IV on 09/16. Echocardiograms confirmed severe AI and cardiac cath without coronary disease. Patient currently sitting in bed without complaints.
TTE on 09/17/23 reported severe AI and dilated root at 4.8 cm. EF was 65-70% with normal RV size and function. Trace mitral regurgitation and tricuspid regurgitation.
On 09/17, BROOKLYNN reported EF of 60-65%. Small echodensity was noted near the left coronary cusp and noncoronary cusp with severe AI and dilated root.
Cardiac catheterization on 09/17 (right radial artery) noted minor luminal regularities of coronary arteries with LVEDP of 25.
Past Medical History
Past Medical History: Other
Resolved hypertension
Alcohol abuse�sober for 1 or 2 days
Obstructive sleep apnea without CPAP use
Deviated septum
Past Surgical History
Past Surgical History: Other (Repair of deviated septum)
Dental History
Next dental exam on
Family History
Mother: at Age (77y.o from Parkinsons)
Father: at Age (45 from PE (hx lung C/A))
Social History
Alcohol: Former (sober 102 days with Naxolone use)
Drug: Former User
Tobacco: Non-Smoker
Personal:
Living: With Spouse
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
Allergies
Allergy/AdvReac Type Severity Reaction Status Date / Time
shrimp Allergy throat Verified 09/17/23 10:54
swelling
Home Medications
�Medication �Instructions �Recorded �Confirmed �Type
acetaminophen 325 mg tablet 650 mg PO DAILYPRN PRN mild pain 09/17/23 09/17/23 History
(Tylenol)
naltrexone 50 mg tablet 50 mg PO QPM 09/17/23 09/17/23 History
naproxen sodium 220 mg capsule 440 mg PO DAILY PRN mild pain 09/17/23 09/17/23 History
(Aleve)
Review of Systems
-
History Source: Patient
HEENT: Reports No Symptoms
Respiratory: Reports SOB
Cardiac: Reports Chest Pain
Abdomen/GI: Reports No Symptoms
: Reports No Symptoms
Musculoskeletal: Reports No Symptoms
Skin: Reports No Symptoms
Neurological: Reports No Symptoms
Vascular: Reports No Symptoms
Physical Exam
Vital Signs
Temp 98.8 F 09/18/23 15:40
Temp route: Oral 09/18/23 13:27
Pulse 102 09/18/23 13:27
Rhythm: Normal sinus rhythm 09/18/23 08:00
Resp Rate 16 09/18/23 15:40
Blood pressure 134/64 09/18/23 13:27
Blood pressure extremity used: Left upper arm 09/18/23 13:27
Position: Sitting 09/18/23 13:27
MAP (cuff-Sumi Monitor) 80 09/18/23 13:17
SaO2 94 09/18/23 15:40
Nasal Cannula flow liters per minute 2 09/18/23 08:00
Oxygen Mode of Delivery Room air 09/17/23 19:45
Acceptable pain level during hospitalization? 0 09/17/23 10:27
Can the patient verbally communicate their pain? Yes 09/18/23 08:00
Pain scale ratin 09/18/23 08:00
Actual Weight 110.3 kg 09/18/23 04:12
Body Mass Index (BMI) 31.2 09/18/23 04:12
Labs
09/18/23 04:09
09/18/23 04:09
APTT 48.2 Sec (23.4-35.0) H 09/18/23 04:09
Troponin I 0.526 ng/ml H* D 09/17/23 19:54
Taa-B-Vijwjaxvugh Pept 2470 pg/ml 09/17/23 11:02
Exam
General: Well Developed, Well Nourished and Comfortable
HEENT: Normocephalic, Anicteric, Moist Mucous Membranes and PERRLA
Neck: Trachea Midline
Respiratory: Crackles (bibase, otherwise clear)
Cardiac: S1/S2, Regular Rhythm (tachycardic @ 130) and Murmur (III/ blowing diastolic murmur LSB )
GI: Soft, Non Tender, Non Distended and Normal Bowel Sounds
Rectal: Deferred by Provider
Skin: Warm and Dry
Neuro: AO x 3, No Motor Deficits and CN X-XII Intact
Extremities: Pulses (bounding +4/4 B/L DP)
Lymph: No Lymphadenopathy
Psych: Calm
Assessment / Plan
-
47 year old male with severe aortic insufficiency and root enlargement
- Dr. Jones spoke ot patient and to explain risk/benefit of AVR
- patient scheduled for AVR with root replacement with Dr. Jones on
- Panelipse ordered
- NPO after midnight
- begin Lasix infusion
Data Reviewed
-
EKG: Report Reviewed by me and Discussed with Physician
Inseminator: Report Reviewed by me and Discussed with Physician
Echo: Report Reviewed by me and Discussed with Physician
Radiology: Report Reviewed by me and Discussed with Physician
Labs: Labs Reviewed by me and Discussed with Physician
--- NOTE | 2023-09-18 16:49 | W.PN.UPDATE ---
Update Note
Progress Note Update
I met with Mr. Rodríguez at the bedside, he is short of breath and heart rates were 130s. His lungs look edematous on CT. His story is consistent with acute AI. Reviewing his BROOKLYNN, I do not feel his valve is salvageable but I will look and see if he
can have a VSRR. Likely he will receive a Bentall. We discussed types of valves, and shared decision making between Mr. Rodríguez, his spouse, and myself is to move forward with a mechanical valved conduit. I do not feel he can wait till next week as
this is acute in nature, and he is already demonstrating signs of decompensation. We will organize the schedule have him undergo surgery in the morning.
Thank you for involving me in the care of this patient. Please feel free to contact me with any questions or concerns.
Cesar Jones MD, MS
Cardiothoracic Surgeon
[facility]
This dictation was created using the [employer] dictation system. Please excuse any grammatical, typographical, or 'sound alike' errors.
[2023-09-18] MEDS: LASIX 40 MG IV (16:51)
[2023-09-18] MEDS: FLUSH (NSS) 1 FLUSH IV (16:52)
--- NOTE | 2023-09-18 17:08 | W.PN.UPDATE ---
Update Note
Progress Note Update
47-year-old male admitted 09/17/23 with report of midsternal chest pressure while running to his car. CT chest (PE study) ruled out pulmonary emboli. TTE/BROOKLYNN confirmed severe AI and cardiac cath without coronary disease. Cardiac
catheterization on 09/17 with luminal regularities of coronary arteries. Diuresed 3L into 09/18 with Lasix infusion. Went for urgent AVR/root replacement 09/[address] Jones.
IV fluids: 1L
U.O.:� 350
Blood:� none
Wires:� 2 atrial, 1 ventricular
Inotropes:� Dobutamine @ 2
Pressors:� Levo @ 2
Sedatives:� Precedex @ 0.6
�
NEURO: sedated on Precedex, pupils +2mm B/L
RESP: #8OT @24cm> 500/60%/16/10. Lungs clear B/L. 2 mediastinal (5cc on arrival) and R/L pleural (0cc on arrival) chest tubes to -20cm suction. Sanguineous drainage
CV: RRR +S1, S2, no S3, no�rub, no murmur, +crisp aortic click. Dermabond to median sternotomy. RIJ w/Cranbury locked @ 44cm. PA 38/19; CVP 13; C.O 4.85CI 2.07
ABD: round, soft, no BS
EXT: no edema, +3/4 DP pulses B/L, no femoral bruit, left radial A-line intact
: Frost with clear yellow urine
�
A/P: POD #0 s/p aortic root replacement using a mechanical valved conduit (#25mm ON-X ascending aortic graft). Left atrial appendage ligation #35mm clip, bilateral pleural drainage for effusions
BROOKLYNN: EF�60-65%
- wean and extubate
- will need instruction regarding antibiotic prophylaxis for dental and invasive procedures
- will start IV Heparin and begin Coumadin/ASA POD #1 for goal INR 2-3 x 3 months, then 1.5-2 mcc
- wean off Levo
- Dobutamine @ 2�
�
# prediabetes (A1C 5.8)
- insulin infusion x 24h
- trend glucose and recheck A1c in 3 months
�
# ETOH abuse (in recovery)
- resume�Naltrexone JUAN [place]IEGO
-avoid opioid narcotics
- Toradol, Gabapentin, Tylenol ATC for pain management
--- NOTE | 2023-09-18 17:19 | PTCARENOTE ---
Type and screen and HgbA1c drawn and sent to lab. patient sent on stretcher to xray for panelipse as ordered.
--- NOTE | 2023-09-18 17:44 | CM ---
spoke to pts in room, pt was getting dental xrays. 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 i discussed preop teaching for AVR-mechanical/Root repair. i gave her the cardiac educ book. he is prev indep, they were just in
[place] and will bestaying at his 's home after dc - [address]. it is a 2 story home with 3 steps to enter. there are no dme's. plan is for CT Transitional care nurse f/u after dc.
cm role explained and all questions answered.
[2023-09-18] MEDS: LIPITOR 40 MG PO (18:35)
[2023-09-18] MEDS: LASIX 50 IV (18:36)
--- NOTE | 2023-09-18 18:39 | PTCARENOTE ---
ABO2 drawn and sent. IV lasix @5ml/hr via right ant. as ordered.
[2023-09-18 22:25] LABS: Blood Urea Nitrogen 24 mg/dl (9-20); Calcium 8.4 mg/dl (8.4-10.2); Carbon Dioxide 30 mmol/L (22-30); Chloride 100 mmol/L (98-107); Estimated Creatinine Clearance 98 ml/min; Glucose 115 mg/dl (70-99); Magnesium 1.9 mg/dl (1.6-2.3); Potassium 3.8 mmol/L (3.5-5.1); Sodium 134 mmol/L (135-145); eGFR > 60.00
[2023-09-18] MEDS: KCL 40 MEQ PO (23:01)
[2023-09-19] VITALS (18 sets, daily range): BP systolic 96–170; BP diastolic 50–83; PULSE 142; BMI 30.7
[2023-09-19] MEDS: TYLENOL 650 MG PO (00:12)
[2023-09-19] MEDS: LOPRESSOR 5 MG IV (00:15)
--- NOTE | 2023-09-19 01:31 | PTCARENOTE ---
Pt received at start of shift, HR SR/ST 90s-100s. Pt in bed resting. Pt educated on plan of care, pt states understanding and has no further questions at this time. First round CVOR prep completed: clipped, showered w/ CHG, linens/gown changed, new
BP cuff. Pt denies any CP, worsening SOB, or lightheadedness/dizziness. Informed to notify RN if any changes, call irvin within reach.
After shower pt HR 130s-140s. CVPA Ed Petros notified, 5mg IV Lopressor ordered and administered. Effective.
[2023-09-19 05:53] LABS: % Basophils 0.4 % (0-2); % Eosinophils 1.1 % (0-6); % Immature Granulocytes 0.4 % (0-0.5); % Lymphocytes 16.4 % (20.5-51.1); % Monocytes 6.9 % (1.7-9.3); % Neutrophils 74.8 % (42.2-75.2); Absolute Eosinophils 0.1 10^3/uL (0-0.7); Absolute Lymphocytes 1.7 10^3/uL (1.2-3.4); Absolute Monocytes 0.7 10^3/uL (0.1-0.6); Absolute Neutrophils 7.6 10^3/uL (1.4-6.5); Hematocrit 42.2 % (39.0-52.0); Hemoglobin 14.5 g/dL (13.0-18.0); Mean Corp Hgb Conc. 34.4 g/dL (33.0-37.0); Mean Corpuscular Hgb 29.4 pg (27.0-31.0); Mean Corpuscular Volume 85.6 fL (80.0-94.0); Mean Platelet Volume 9.5 fL (7.4-10.4); Nucleated Red Blood Cells % 0 % (-); Platelet Count 241 10^3/uL (130-400); Red Blood Cell Count 4.93 10^6/uL (4.70-6.10); Red Cell Dist. Width 12.6 % (11.5-14.5); White Blood Cell Count 10.1 10^3/uL (4.8-10.8)
--- NOTE | 2023-09-19 06:03 | PTCARENOTE ---
CVOR prep #2 completed. CHG bath, new gown, new bed/linens, new BP cuff.
[2023-09-19] MEDS: MAGNESIUM OXIDE 500 MG PO (06:06)
[2023-09-19] MEDS: LOPRESSOR 25 MG PO (06:06)
[2023-09-19] MEDS: PROTONIX 40 MG PO (06:06)
[2023-09-19] MEDS: BACTROBAN 2% OINTMENT 1 APPLIC NASAL ×2 (06:06→19:47)
--- NOTE | 2023-09-19 06:19 | W.CVOR.SURPR ---
CVOR Surgeon Immed Pre Op
-
I have examined this patient prior to performance of the scheduled procedure.
The patient's condition is unchanged from the time of the dictated/written History and
Physical and the patient is able to undergo the scheduled procedure.
Acute AI, planning for aortic root replacement with [facility] valved conduit, will assess valve for possible valve-sparing root replacement,
however based on BROOKLYNN review, odds are low his valve will be salvageable. Lots of PVCs and sinus tach overnight, will plan to clip his LORENA.
[2023-09-19 06:25] LABS: ALT (SGPT) 16 U/L (0-50); AST (SGOT) 21 U/L (17-59); Alkaline Phosphatase 52 U/L (38-126); Blood Urea Nitrogen 23 mg/dl (9-20); Calcium 8.6 mg/dl (8.4-10.2); Carbon Dioxide 30 mmol/L (22-30); Chloride 102 mmol/L (98-107); Estimated Creatinine Clearance 98 ml/min; Glucose 115 mg/dl (70-99); Potassium 3.7 mmol/L (3.5-5.1); Sodium 137 mmol/L (135-145); Total Bilirubin 1.3 mg/dl (0.2-1.3); Total Protein 6.7 g/dl (6.3-8.2); eGFR > 60.00
[2023-09-19 07:08] LABS: ACT+ - POC 90 Seconds (82-134)
[2023-09-19 07:14] LABS: B.E. - POC 0.6 mmol/L; Glucose - POC 108 mg/dl (65-99); HCO3 - POC 27 mmol/L (21-29); Hematocrit - POC 41 % PCV (42-52); Hemodilution- POC No; Ionized Calcium - POC 1.09 mmol/L (1.12-1.27); O2 Saturation %Calculated-POC 97.2 5 (92-96); PCO2 - POC 46 mmHg (35-45); PO2 - POC 97 mmHg (80-100); Potassium - POC 3.3 mmol/L (3.6-5.0); Sodium - POC 141 mmol/L (135-145); pH - POC 7.37 (7.35-7.45)
[2023-09-19 07:26] LABS: Urine Albumin Negative (Neg - Trace); Urine Bilirubin Negative (Negative); Urine Character Clear (Clear); Urine Color Straw; Urine Glucose Negative (Negative); Urine Ketone Negative (Negative); Urine Leukocyte Negative (Negative); Urine Nitrite Negative (Negative); Urine Occult Blood Negative (Negative); Urine Specific Gravity 1.015 (<1.030); Urine Urobilinogen Negative (Neg - 1+)
[2023-09-19 08:26] LABS: ACT+ - POC 729 Seconds (82-134)
--- NOTE | 2023-09-19 08:28 | W.PN.HOSP.TC ---
Today's Communication/Plan
-
For CT surgery and aortic valve replacement today
Presumptive transfer to CT surgery service. Postoperatively
Assessment / Plan
Assessment / Plan
47-year-old male complaining of chest tightness midsternal to both arms with diaphoresis and nausea yesterday after running to the car looking for his checkbook he thought he lost. He reports having dyspnea on exertion came in the house and went to
lay back down. 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 His believes the entire episode lasted approximately 20 minutes. He has past medical history of
hypertension but at the time was drinking alcohol and became sober over the last 101 days and no longer needed BP meds. This a.m. he reports feeling short of breath upon wakening with some midsternal chest pressure. On arrival to the ER his pulse
ox is 89% on room air and 93% on 2 L nasal cannula. He denies any recent illness, sore throat fever, chills, palpitations, shortness of breath, cough, abdominal pain, nausea, vomiting, diarrhea, urinary symptoms. He has past medical history of
hypertension, alcohol abuse currently sober 101 days, sleep apnea noncompliant Elevated BNP and troponin ED. Trend troponin. EKG with nonspecific ST abnormality.
Cardiology evaluation.
Echo. Admit to IVU. Start heparin drip.
CT chest with possible pneumonia, check procal. If Pro-Kennedy elevated then start antibiotics.
#Chest pain concern [place]
COVID-negative
Troponin 0.618, will trend
-IV heparin drip
-Follow EKG
-Consult cardiology
-Check urine drug screen
EKG: Sinus rhythm with PVCs 92 bpm, QTc 472 MS, incomplete RBBB
#Acute hypoxic respiratory insufficiency 2/2 possible NEW CARDIAC MURMUR versus possible right PNA
89% RA, 93% 2 L nasal cannula
-WBC 12 no left shift and resolved overnight, afebrile, nontoxic-appearing
-,BNP 2470/troponin trending down from 0.7
-Hold on current antibiotics as Pro-Kennedy within normal limits
-Check 2D echo/notes Severe aortic regurgitation and a dilated aortic root
-Continue heparin drip/had cardiac cath showing severe aortic regurgitation with dilated aortic root
-Consultation with CT surgery we have reviewed results with patient and spouse and agreed to pursue valve replacement on September 18
[address] PE study:
1. No evidence of PE
2. Mild pneumonia throughout the right lung/doubt significance
3. Small right and trace left pleural effusions
-Will await cardiology input and further diagnostic evaluation with BROOKLYNN/cardiac cath?
#Hx of Sleep apnea noncompliant with CPAP
#Alcohol abuse currently sober 101 days
-Prior vodka use daily
-Patient reports uses naltrexone 50 mg every afternoon to stop drinking
#Anxiety hx
#Diverticulitis Hx mid 30s
-Prior history of EGD [place]
DVT prophylaxis
Patient on current IV heparin
Full code
Anticipated Discharge: > 48 hours
Subjective/Interval History
-
Date of Service: September 19, 2023
For aortic valve replacement and went to surgery this morning unavailable for exam
Objective Data
-
Labs:
Laboratory Results
09/18/23 09/19/23 09/19/23
21:51 04:57 05:46
WBC Cancelled 10.1
Hgb Cancelled 14.5
Hct Cancelled 42.2
Plt Count Cancelled 241
Sodium 134 L Cancelled 137
Potassium 3.8 Cancelled 3.7
Chloride 100 Cancelled 102
Carbon Dioxide 30 Cancelled 30
BUN 24 H Cancelled 23 H
Creatinine 1.2 Cancelled 1.2
Glucose 115 H Cancelled 115 H
Calcium 8.4 Cancelled 8.6
Total Bilirubin Cancelled 1.3
AST Cancelled 21
ALT Cancelled 16
Alkaline Phosphatase Cancelled 52
Vital Signs:
Vital Signs
Temp Pulse Resp BP Pulse Ox
98.9 F 88 18 118/60 97
09/19/23 05:00 09/19/23 04:51 09/19/23 05:00 09/19/23 06:06 09/19/23 05:00
I&O
09/18/23 09/19/23 09/20/23
06:59 06:59 06:59
Intake Total 238 / 238 1031.5 / 1031.5
Output Total 1150 / 1150 1900 / 1900
Balance -912 / -912 -868.5 / -868.5
[2023-09-19 08:50] LABS: B.E. - POC 3.7 mmol/L; Glucose - POC 114 mg/dl (65-99); HCO3 - POC 29 mmol/L (21-29); Hematocrit - POC 33 % PCV (42-52); Hemodilution- POC Yes; Hemoglobin Calculated - POC 11.2; Ionized Calcium - POC 0.95 mmol/L (1.12-1.27); PCO2 - POC 47 mmHg (35-45); PO2 - POC 382 mmHg (80-100); Potassium - POC 4.5 mmol/L (3.6-5.0); Sodium - POC 138 mmol/L (135-145)
[2023-09-19 08:54] LABS: ACT+ - POC 531 Seconds (82-134)
[2023-09-19 09:25] LABS: B.E. - POC 3.1 mmol/L; Glucose - POC 157 mg/dl (65-99); HCO3 - POC 28 mmol/L (21-29); Hematocrit - POC 40 % PCV (42-52); Hemodilution- POC Yes; Hemoglobin Calculated - POC 13.6; Ionized Calcium - POC 0.98 mmol/L (1.12-1.27); O2 Saturation %Calculated-POC 99.9 5 (92-96); PCO2 - POC 43 mmHg (35-45); PO2 - POC 344 mmHg (80-100); Potassium - POC 4.8 mmol/L (3.6-5.0); Sodium - POC 138 mmol/L (135-145); pH - POC 7.42 (7.35-7.45)
[2023-09-19 09:25] LABS: ACT+ - POC 476 Seconds (82-134)
--- NOTE | 2023-09-19 09:25 | CM ---
pt in OR today, cm to follow.
[2023-09-19 09:31] LABS: Glycohemoglobin (HgbA1c) 5.8 % (4.0-5.6)
[2023-09-19 10:04] LABS: ACT+ - POC 514 Seconds (82-134)
[2023-09-19 10:07] LABS: Glucose - POC 142 mg/dl (65-99); HCO3 - POC 26 mmol/L (21-29); Hematocrit - POC 37 % PCV (42-52); Hemodilution- POC Yes; Hemoglobin Calculated - POC 12.5; Ionized Calcium - POC 1.01 mmol/L (1.12-1.27); O2 Saturation %Calculated-POC 99.8 5 (92-96); PCO2 - POC 46 mmHg (35-45); PO2 - POC 236 mmHg (80-100); Potassium - POC 4.5 mmol/L (3.6-5.0); Sodium - POC 139 mmol/L (135-145); pH - POC 7.36 (7.35-7.45)
[2023-09-19 10:34] LABS: B.E. - POC 0.1 mmol/L; Glucose - POC 143 mg/dl (65-99); HCO3 - POC 25 mmol/L (21-29); Hematocrit - POC 38 % PCV (42-52); Hemodilution- POC Yes; Ionized Calcium - POC 1.22 mmol/L (1.12-1.27); O2 Saturation %Calculated-POC 99.9 5 (92-96); PCO2 - POC 41 mmHg (35-45); PO2 - POC 322 mmHg (80-100); Potassium - POC 4.6 mmol/L (3.6-5.0); Sodium - POC 141 mmol/L (135-145)
[2023-09-19 10:38] LABS: ACT+ - POC 484 Seconds (82-134)
[2023-09-19 10:56] LABS: ACT+ - POC 112 Seconds (82-134)
[2023-09-19 10:57] LABS: B.E. - POC -1.9 mmol/L; Glucose - POC 132 mg/dl (65-99); HCO3 - POC 23 mmol/L (21-29); Hematocrit - POC 35 % PCV (42-52); Hemodilution- POC Yes; Hemoglobin Calculated - POC 12.1; Ionized Calcium - POC 1.13 mmol/L (1.12-1.27); O2 Saturation %Calculated-POC 99.1 5 (92-96); PCO2 - POC 40 mmHg (35-45); PO2 - POC 138 mmHg (80-100); Potassium - POC 3.9 mmol/L (3.6-5.0); Sodium - POC 141 mmol/L (135-145); pH - POC 7.38 (7.35-7.45)
--- NOTE | 2023-09-19 11:26 | W.PN.CT.SURG ---
CT Surgery Operative Note
-
CARDIAC SURGERY OPERATIVE REPORT
Preoperative Diagnosis: Acute aortic valve insufficiency with respiratory decompensation secondary to torn noncoronary cusp with evidence of acute heart failure
Postoperative Diagnosis: Same
Procedure(s) Performed:
1. Sternotomy with standard aortic and right atrial cannulation
2. Aortic valve resection
3. Root replacement using a mechanical valved conduit (25mm ON-X ascending aortic graft)
4. Left atrial appendage ligation with 35mm clip
5. Placement temporary atrial and ventricular pacing wires
6. Transesophageal echocardiography
7. Bilateral pleural drainage for effusions
Date of Surgery: 09/19/2023
Comorbidities:
1. Acute decompensated heart failure with respiratory decompensation secondary to acute aortic valve insufficiency
2. 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
3. Hypertension
4. History of EtOH abuse
5. Obstructive sleep apnea
6. Multiple PVCs and sinus tachycardia preoperatively
7. Severely elevated LVEDP to 25 mmHg indicating significant volume overload
8. Pulmonary edema and pleural effusion secondary to acute heart failure
Attending Surgeon: Cesar Jones MD, MS
Assistants: Cesar Davis PA-C (present and necessary to first aid nurse, retraction, suction, exposure, suture management, and wound closure under my direction)
Anesthesiology: Chucho Avalos MD and Harmeet Gunderson CRNA
Scrub and Circulating RNs: Camryn Salcedo RN, Hiro Sanz RN
Plastic Cnc Machine Operator: Akosua Ayon CCP
Anesthesia: GETA
EBL: per perfusion records
Products: None
CPB Time: 121 minutes
Aortic Cross Clamp Time: 91 minutes
Indication(s) for Procedures: This is a 47-year-old male who came in over the weekend with sudden shortness of breath and respiratory failure. On CT imaging he was found to have pulmonary edema and pleural effusions. Underwent transthoracic
echocardiogram which demonstrated severe aortic valve insufficiency. He also had concomitant aortic root aneurysm measuring approximately 4.8 cm at the level of the sinus of Valsalva was. BROOKLYNN demonstrated likely a torn aortic valve leaflet
resulting in severe central and eccentric complex insufficiency. Left heart cath was negative for any coronary disease. Due to his persistent tachycardia, oxygen requirement, and severely elevated LVEDP, we discussed expedited surgical
intervention. Given the likely primary leaflet pathology, he understood that his valve is likely not salvageable. We discussed the risk and benefits of both biological and mechanical aortic valves, due to his age shared decision making was to
pursue mechanical aortic valve.
Aortic Valve Description: Torn noncoronary cusp at the commissure with significant prolapse of the noncoronary leaflet. Dilated aortic root with thinned out sinuses. Relatively preserved the ascending aorta and distal ascending aorta. Left and
right coronary ostia were quite large in size and in their normal anatomic positions. The right coronary ostia was somewhat displaced cephalad to the root aneurysm.
Findings: Left ventricular ejection fraction preoperatively was 55 to 60%. He had multiple PVCs. There were no regional wall motion abnormalities. He did require 1 defibrillation event as he went of V-fib when air entrainment occurred to the
right coronary artery. At that time his EF was sluggish. Cardiopulmonary bypass was reinstituted in order to decompress the heart and drive his blood pressure up to deair. He regaining sinus rhythm shortly after and his EF was back to normal at 55
to 60% with no new regional wall motion abnormalities in either RV or LV. His aortic valve was not salvageable, he had torn at the non coronary cusp almost to the level of the nahomy starting at the commissure resulting in a prolapse of the none
coronary cusp and wide open AI. The root was also dilated and the right coronary ostia was slightly displaced cephalad. His aortic valve was resected and a total of 60 nonpledgeted 2 Ethibond sutures were placed in an inverted fashion from LVOT
through annulus through sewing cuff of the valved conduit. These were secured to place with core knots. Medial left and right coronary ostia and the Valsalva graft was created using an eye cautery. The left coronary artery was reimplanted in the
running fashion using 5-0 Prolene. The right coronary cusp was implanted slightly higher onto the sinus using 5-0 Prolene in a running fashion. At the conclusion of the case he was on low-dose dobutamine for rate but no significant inotropic
support. Did not require any blood products. He has atrial ventricular pacing wires and was paced initially and then shortly after regained sinus rhythm. Left atrial appendage was verified to be free of any thrombus or debris preoperatively and
was found to be totally flush and occlusive using a 35 mm clip. Bilateral pleural spaces were drained for effusions.
Specimen(s): Aortic valve leaflets and part of aortic noncoronary sinus.
Prosthesis:
1. 25mm ON-X AAP Valved Conduit, SN [id number]
2. 35mm LORENA Clip, SN [id number]
Description of Procedure: The patient was taken to the operating room. Their identity and procedure to be performed were verified and they were positioned supine on the operating table. Induction via general anesthesia with endotracheal intubation
was performed and central venous access and arterial monitoring were inserted. A preoperative transesophageal echocardiogram was performed to assess cardiac function and valvular function. The patient was then prepped and draped from chin to feet in
a sterile fashion. A preoperative time-out was performed with all members of the team present. A midline chest incision was performed along with median sternotomy. The innominate vein was isolated. Full heparinization was given (a total of 65
units). We created a pericardial well. The aortic cannulation site was chosen where it was soft, pliable, and free of calcium. Cannulation was performed with an arterial cannula in the ascending aorta and a triple-stage venous cannula through the
right atrial appendage. The arterial cannula line had an appropriate bounce and correlating pressures with test dosing. The pulmonary artery was away from the aorta to facilitate a clamp site and aortotomy. A retrograde coronary sinus
catheter was placed for the RA with BROOKLYNN and manual guidance. The ACT was confirmed to be over 400 and retrograde autologous priming was performed before commencing cardiopulmonary bypass. A left ventricular vent was placed at the right superior
pulmonary vein and secured. The aortic cross-clamp was placed after decreasing the flow on the bypass and mean arterial pressure. A total of 1.2L combination initial dose of retrograde and antegrade direct ostial (after open the aorta) Del-Nido
cardioplegia solution was given and planned for re-dosing every 75 minutes as necessary. There was rapid electro-mechanical arrest of the heart at 600 cc of cardioplegia. Cold slush was placed into a sponge and topically on the RV while we
systemically cooled to 34 degrees centigrade. During the retrograde cardioplegia, the aorta was opened across the STJ to verify retrograde return of cardioplegia down the coronary ostia. Additionally after giving 800 cc of retrograde, I gave
direct ostial right and left for total of 1300 cc of cardioplegia.
Carbon dioxide was used to flood the field. The location of both left and right coronary vessels were visualized in the root. Heart was then mobilized medially in order to expose the left atrial appendage. This was sized to a 35 mm clip and then
ligated accordingly. The aorta was fully transected above the STJ. Stay sutures were placed at each commissure to facilitate exposure. The leaflets were excised and sent for pathological assessment. Next, the aortic sinuses were resected and the
left main and right coronary buttons were mobilized. 4-0 pledgeted sutures were used to retract the buttons at the 12 o'clock position. A total of 16 non-pledgeted 2-0 ethibond annular sutures were placed [id number] (inverted)
circumferentially. These were brought through the sewing cuff of the valved conduit which as then parachuted into place. A Cor-Knot device was used to secure the annular sutures. An eye cautery was used to first create a small opening to perform
left main coronary button anastomosis. The button was then trimmed accordingly and using 5-0 Prolene, the button was reimplanted toward the Kemal-left sinus. Volume was then used to fill the heart to estimate the location for the right coronary
button anastomosis. In a similar fashion an eye cautery was used to create a small opening in the kemal-right sinus and anastomosis was created with 5-0 Prolene running fashion. The valved conduit was trimmed accordingly. The distal anastomosis was
performed with a running 4-0 Prolene in a single layer using upper skagit pericardium as a gasket.
De-airing maneuvers were performed and temporary bipolar ventricular pacing wires were placed on the base of the right ventricle and temporary atrial pacing wires at the SVC/Atrial junction. The patient was placed in a Trendelenburg position and
flows on bypass were lowered. The aortic cross clamp was removed and flows were slowly brought back up. The suture lines appeared hemostatic. Transesophageal echocardiography revealed no AI and appropriate prosthetic function. Once de-airing was
satisfactory, the left ventricular vent was removed. After verifying acceptable parameters, we initiated weaning from cardiopulmonary bypass. Once we were off cardiopulmonary bypass, the venous cannula was clamped and removed. He then developed a
ventricular fibrillation event likely from air entrainment down the right coronary artery. The venous cannula was reinserted into the right atrial appendage at the previous pursestring and cardiopulmonary bypass was repeated. Pressure was driven
up higher on cardiopulmonary bypass. At this point RV and LV function had recovered, LV function was concentric with symmetrical squeeze. Did not meet again off cardiopulmonary bypass and clamped the venous line removal. A test dose of protamine
was administered and the patient was monitored for any adverse reaction before resuming protamine. Once half of the protamine dose was delivered, pump suckers were turned off and the systolic blood pressure was lowered for aortic decannulation. The
aortic cannula was removed and pursestrings were tied down. All cannulation sites were oversewn with a 4-0 prolene. The suture lines were inspected and hemostasis was confirmed. Mediastinal hemostasis was obtained. Two 24Fr Adriel drains were placed
within the pericardium. I then opened bilateral pleural spaces and drained them and placed 19 [place] Adriel drains into each. The sternum was approximated with 4 #7 singles and 3 #6 double stainless steel wires. Fascia was approximated with #1
vicryl suture. The subcutaneous, dermis and epidermis were closed in layers in a running fashion. The skin wound was cleansed and dressed.
All instrument, sponge, and needle counts were confirmed to be correct x 2 at the end of the operation. The patient was transferred to the cardiac intensive care unit in critical but stable condition.
I, Dr. Cesar Jones, was present, scrubbed for, and performed all critical elements of this procedure.
Cesar Jones MD, MS
Cardiothoracic Surgeon
[facility] [address]
This dictation was created using the [employer] system. Please excuse any grammatical, typographical, or 'sound alike' errors
--- NOTE | 2023-09-19 11:43 | CON.INTV ---
Consultation
Consultation Request
Date/Time Consultation Requested: 09-19-23
Date/Time Consultation Performed: 09-19-23
Requesting Provider: Dr Jones
Performing Provider: Dr Littlejohn
Reason for Consultation: S/p AI surgery
Medical History
-
Chief Complaint: s/p AVR
History of Present Illness:
Mr Matt Rodríguez is a 47/M adm 09-16 with acute CP, diaphoresis, nausea.
At ER, POx 89% RA, up to 93% on O2 NC 2L. Chest CTA showed dilated Ao root. Seen by Cards, suspected AI confirmed by TTE.
LHC with minor luminal irregularities. Seen by CTSx, consider candidate for prompt AV replacement
Seen at [facility], s/p AVR and LORENA ligation 09-18, sedated, well synchronized to MV
Past Medical History
Past Medical History: HTN, Psychiatric (Anxiety) and Other (DAVID noncompliant to CPAP. Diverticulitis.)
Past Surgical History: Other (DNS repair)
Social History
Tobacco: Non-smoker
Alcohol: Former
Drug: Former User (remote)
Personal:
Living: With Family
Employment: Employed
Family History
Family History: Cancer (F: lung) and Other (F: PE at 45. M: PD. B: DAVID)
Allergies / Home Medications
Allergies
Allergy/AdvReac Type Severity Reaction Status Date / Time
shrimp Allergy throat Verified 09/17/23 10:54
swelling
Home Medications
�Medication �Instructions �Recorded �Confirmed �Last Taken �Type
acetaminophen 325 mg tablet 650 mg PO DAILYPRN PRN mild pain 09/17/23 09/17/23 09/17/23 History
(Tylenol)
naltrexone 50 mg tablet 50 mg PO QPM 09/17/23 09/17/23 09/16/23 History
naproxen sodium 220 mg capsule 440 mg PO DAILY PRN mild pain 09/17/23 09/17/23 2 Days Ago History
(Aleve) ~09/15/23
Review of Systems
-
Unable to Obtain full review of systems at this time due to: Patient Intubation
Vitals / Labs / Diagnostic Testing
Vital Signs
Temp Pulse Resp BP Pulse Ox
98.9 F 93 18 118/60 97
09/19/23 05:00 09/19/23 05:13 09/19/23 05:00 09/19/23 06:06 09/19/23 05:00
Laboratory Results
09/18/23
12:00
APTT Cancelled
Microbiology
09/17/23 18:02 Blood/Venous Blood Culture - Preliminary
No Growth in 24 hours- Final report to follow
09/17/23 17:34 Blood/Venous Blood Culture - Preliminary
No Growth in 24 hours- Final report to follow
Diagnostic Testing:
Physical Exam
-
HEENT: Normocephalic and Moist Mucous Membranes
Cardiovascular: Regular Rhythm and Peripheral Edema (n)
Respiratory: Clear and Non-Labored Respirations
GI: Soft and Non Distended
Neurology: Other (sedated)
Skin: Warm
General: Respiratory Distress (n)
Assessment
-
Assessment:
Mr Matt Rodríguez is a 47/M adm 09-16 with acute CP, diaphoresis, nausea. At ER, POx 89% RA, up to 93% on O2 NC 2L. Chest CTA showed dilated Ao root. Seen by Cards, suspected AI confirmed by TTE. LHC with minor luminal irregularities. Seen by CTSx,
consider candidate for prompt AV replacement due to acuity of condition
Impression:
AI, s/p AVR and LORENA ligation 09-18
Conditions VP SALES:
HTN
Former ETOH use
Anxiety
Diverticulitis
DAVID noncompliant to CPAP
Plan:
Ventilator settings reviewed: [id number] 8. 0.4 (POx 97%)
FiO2 will be weaned
Minute ventilation will be adjusted
Arterial blood gases will be monitored
Spontaneous breathing trial will be attempted with hopeful extubation after anesthesia/sedation wear off
Pulmonary artery catheter parameters will be followed
Pressors/antihypertensive/inotropes/diuretics will be provided as needed
CXR postop with mild pulm vasc congestion, ET, RIJ SGC, sternotomy wiring, chest/med tubes
Monitor chest tube output
Monitor hemoglobin
Monitor platelet count and coags
Transfuse blood product if needed
CT surgery following chest tubes
Monitor blood sugar
Insulin drip per protocol
Will recommend to improve compliance to CPAP (DAVID, reportedly noncompliant to CPAP)
Aspiration precautions
VAP prevention protocol
DVT prophylaxis
Early nutrition
Early mobilization
Critical care time: 35 min
[2023-09-19 11:46] LABS: Glucose - Point of Care 147 mg/dl (70-99)
[2023-09-19 11:48] LABS: B.E. 1.2 mmol/L; HCO3 26.6 mmol/L (21-28); Hematocrit 37.4 % (39.0-52.0); Hemoglobin 13.2 g/dL (13.0-18.0); Ionized Calcium 1.12 mMOL/L (1.15-1.33); O2 Saturation % 95.6 % (94-98); PCO2 44 mmHg (35-48); PO2 71 mmHg (83-108); Platelet Count 153 10^3/uL (130-400); Sodium 136 mMOL/L (136-145); pH 7.39 (7.35-7.45)
[2023-09-19 11:49] LABS: O2 Therapy VENT
[2023-09-19 11:54] LABS: Mixed Venous O2 Saturation 63.4 %
[2023-09-19 11:59] LABS: APTT 32.2 Sec (23.4-35.0); INR 1.55; PT 18.4 Sec (11.4-14.6)
--- NOTE | 2023-09-19 12:00 | PTCARENOTE ---
Pt received from [facility] @1135. Pt intubated and sedated on precedex gtt. Pt unresponsive. RASS -5. PERRLA 2 sluggish. Pt intubated with 8.0 ETT @23cm at the lip. Initial ventilator settings SIMV 70% 16 600 8. POX 96%. Lungs audible anteriorly.
Mediastinal chest tubes x2 y-sited to 1 atrium to -20cm suction draining red fluid. Right and left pleural chest tubes y-sited to 1 atrium to -20cm suction draining red fluid. No air leaks, tidaling, crepitus noted. NSR on tele with rates in the
90s. BP stable 121/77. +Click. Bilateral radial and DP pulses palpable No edema noted. Epicardial AV-wires set to back up VVI 50/5/4. Thresholds completed for both A and V wires. CI 2.07 PA pressures 30s/20s, CVP 10. Abdomen soft, round, nontender.
Hypoactive BS. Frost catheter intact draining adequate amounts of clear yellow urine. Sternal incision approximated with skin glue. Chest tube dressing CDI. Right IJ cordis intact and swan floated to 51cm. Right AC 20g PIV intact infusing insulin
gtt per Critical Care Glycemic Protocol. Left radial lindsey intact. All lines flushed, leveled, zeroed with appropriate waveforms. Gtts: NSS KVO x2, Precedex @ 0.6mcg/kg/hr, Dobutamine @ 2mcg/kg/min. See MAR for medication administration. See
worklist for complete nursing assessment. Post op EKG, labs, and CXR completed.
[2023-09-19 12:01] LABS: Blood Urea Nitrogen 23 mg/dl (9-20); Estimated Creatinine Clearance 98 ml/min; Glucose 143 mg/dl (70-99); Magnesium 2.6 mg/dl (1.6-2.3)
[2023-09-19] MEDS: NEURONTIN PO (12:06)
[2023-09-19] MEDS: ANCEF 10 IV ×2 (12:06)
[2023-09-19] MEDS: TORADOL 30 MG IV ×2 (12:07→18:03)
[2023-09-19] MEDS: NSS 500 IV (12:07)
--- NOTE | 2023-09-19 12:45 | PTCARENOTE ---
Pt woke up spontaneously. Motioning that he felt like he was vomiting. Zofran administered. Emotional support provided. Pt able to shake head appropriately to orientation questions and follows commands. Pt drifts off to sleep.
[2023-09-19] MEDS: CALCIUM CHLORIDE 10% SYRINGE 50 MG IV (12:50)
[2023-09-19] MEDS: CALCIUM CHLORIDE 10% SYRINGE 50 ML IV (12:50)
[2023-09-19] MEDS: ZOFRAN 4 MG IV (12:51)
[2023-09-19 12:59] LABS: B.E. 1.5 mmol/L; HCO3 24.7 mmol/L (21-28); O2 Saturation % 97.3 % (94-98); PCO2 34 mmHg (35-48); PO2 78 mmHg (83-108); pH 7.47 (7.35-7.45)
[2023-09-19 13:10] LABS: Glucose - Point of Care 112 mg/dl (70-99)
--- NOTE | 2023-09-19 13:10 | W.PN.CD ---
Addendum entered and electronically signed by Migue Pena MD 09/19/23 18:30:
I saw and examined the patient.
The BB SHOT PACKER's note was reviewed and I agree with the note.
Patient seen earlier today. Hemodynamically stable postop.
Postop care as directed by CT surgery.
-Initiation of anticoagulation for mechanical AVR ( mechanical valved conduit (25mm ON-X ascending aortic graft)) as directed by CT surgery
Original Note:
Today's Communication / Plan
-
Follow telemetry
Extubation per CTS
Impression / Plan
-
Impression/Plan: 47M with subacute onset of chest pain and dyspnea, abnormal troponin and new, severe aortic insufficiency.
#Severe AI S/P Root replacement using a mechanical valved conduit (25mm ON-X ascending aortic graft) with LORENA clip by Dr. Jones 09/19/23
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
-Postoperative EF 55-60% without regional wall motion abnormality, unchanged
-Mean gradient 5 mmHg postoperatively
-1 defibrillation event for VF when air entrainment occurred in right coronary
-Bilateral pleural spaces drained
-On low-dose dobutamine
-EKG with non specific ST abnormalities, prolonged QT, EKG in a.m.
-Anticoagulation plan: INR goal for first 3 months 2�3 with ASA, then 1.5�2.0 and ASA for life.
-Follow telemetry
#CP/dyspnea, in the setting of AI
-Troponin 0.618 --> 0.710 --> 0.526.
-LHC: Moderate to severe aortic root dilation. Severe aortic valve insufficiency. Severely elevated filling pressures. Minor luminal irregularities in the coronary tree.
#Prior HTN
-Chronic, stable.
#Prior alcoholism
-Chronic, stable.
-Continued sobriety encouraged.
#iRBBB
#DAVID/CPAP
Subjective/Interval History:
Intubated and sedated on mechanical ventilation.
Operative notes reviewed.
DATA:
TTE, 09/17/2023:
CONCLUSIONS
Hyperdynamic systolic function. Left ventricular ejection fraction is 65-70%.
Severe aortic regurgitation. The aortic valve does not appear to coapt.
Dilated aortic root (4.8 cm) with normal ascending aorta
No prior study available for comparison.
CTPA, 09/17/2023:
IMPRESSION:
1. No evidence of pulmonary embolism.
2. Mild pneumonia throughout the right lung.
3. Small right and trace left pleural effusions
The aortic root measures up to 4.4 cm.
Physical Exam
Vital Signs/Labs
Vital Signs
Temp Pulse Resp BP Pulse Ox
98.3 F 89 12 121/77 96
09/19/23 13:00 09/19/23 12:00 09/19/23 12:00 09/19/23 12:00 09/19/23 12:00
09/18/23 09/19/23 09/20/23
06:59 06:59 06:59
Actual Weight 110.3 kg 108.4 kg
09/19/23 11:40
PT 18.4 Sec (11.4-14.6) H 09/19/23 11:40
INR 1.55 09/19/23 11:40
APTT 32.2 Sec (23.4-35.0) 09/19/23 11:40
Magnesium 2.6 mg/dl (1.6-2.3) H 09/19/23 11:40
Triglycerides 171 mg/dl (10-149) H 09/18/23 04:09
LDL Cholesterol, Calc 80 mg/dl 09/18/23 04:09
VLDL Cholesterol, Calc 34 mg/dl (0-30) H 09/18/23 04:09
HDL Cholesterol 34 mg/dl 09/18/23 04:09
09/17/23
11:02
[id number] Pept 2470
LAB Results
09/17/23 09/17/23 09/17/23
11:02 14:03 19:54
Troponin I 0.618 H* 0.710 H* 0.526 H* D
Physical Exam
Constitutional: No acute distress and Comfortable
EENT: Anicteric and Moist mucous membranes
Cardiovascular: Rhythm & rate is regular and Other (mechanical click)
Respiratory: Lungs clear to auscul. and Other (on mechanical ventilation)
GI: Soft and Distention absent
Neuro/Psych: Other (sedated)
Other: Skin (warm and dry)
Data Reviewed
-
Date of Service: September 19, 2023
EKG: Report Reviewed by me
Medical Tests (PFT, Pathology etc): Report Reviewed by me
Labs: Labs Reviewed by me
--- NOTE | 2023-09-19 13:15 | PTCARENOTE ---
CI 1.71. CT INTERVENTIONAL TECH notified.
[2023-09-19 13:44] LABS: Mixed Venous O2 Saturation 63.3 %
[2023-09-19 13:51] LABS: B.E. 0.5 mmol/L; HCO3 24.6 mmol/L (21-28); O2 Saturation % 98.9 % (94-98); PCO2 37 mmHg (35-48); PO2 105 mmHg (83-108); pH 7.43 (7.35-7.45)
--- NOTE | 2023-09-19 14:00 | PTCARENOTE ---
Pt bathed with CHG wipes. Turned from side to side and new linens placed under patient. No significant dumps from chest tubes. Pt tolerated. RT at bedside to place pt on cpap wean. POX 96% pt tolerated.
[2023-09-19 14:12] LABS: Glucose - Point of Care 119 mg/dl (70-99)
[2023-09-19] MEDS: TYLENOL PO (14:15)
--- NOTE | 2023-09-19 14:15 | PTCARENOTE ---
CI 1.55 CT MECHANICAL DETAILER made aware. Dobutamine increased to 3mcg/kg/min per CT MECHANICAL DETAILER.
[2023-09-19] MEDS: OFIRMEV 100 IV (14:27)
--- NOTE | 2023-09-19 14:32 | PN.CDI ---
CDI
- -
CDI:
Physician Documentation Request
Admit Date: 09/17/23 13:[address] Surgery,
Please review the following and provide your response in the progress notes.
Clinical Indicators:
- 09/18 CT Surgery Operative Note 'evidence of acute heart failure'
- 'Acute decompensated heart failure'
- 'Pulmonary edema and pleural effusion secondary to acute heart failure'
- 09/16 proBNP 2470
- 09/16 Echo EF 65-70%
Please provide further specificity regarding the most likely type of acute CHF you are evaluating, treating or monitoring.
Type
Systolic
Diastolic
Combined Systolic/Diastolic
Other
Use of terms such as suspected, likely, concern for, or probable (associated with a specific diagnosis that is being evaluated, monitored, or treated as if it exists) are acceptable and can be coded in the inpatient setting, when documented at the
time of discharge.
Thank you,
Augustin Harper RN
CDI Specialist
Please use your independent medical judgment in providing your response.
[2023-09-19 14:48] LABS: B.E. 2.3 mmol/L; O2 Saturation % 98.8 % (94-98); PCO2 32 mmHg (35-48); PO2 107 mmHg (83-108); Potassium 4.9 mMOL/L (3.5-5.1)
--- NOTE | 2023-09-19 14:55 | PTCARENOTE ---
Pt extubated to 6L NC by RT. Pt tolerated 98% on 6L NC. Pt drowsy but oriented x4. Resting at this time. Pt's at bedside.
--- NOTE | 2023-09-19 15:01 | RESPNOTE ---
1455- patient extubated to 6 liter NC without incident SAT 97%, HR 99 RR 18-22. IS done by RN 1750mL
[2023-09-19 15:02] LABS: Glucose - Point of Care 125 mg/dl (70-99)
[2023-09-19 16:00] LABS: Glucose - Point of Care 129 mg/dl (70-99)
--- NOTE | 2023-09-19 16:00 | PTCARENOTE ---
Pt reassessed. Pt drowsy but oriented x4. LEE with equal strength throughout. Pt c/o 11/12 sternal pain-see MAR. SR-ST with rates 90s-100s. BP stable. AV wires set to back up, no pacing. CI 2.3, PA pressures 20s/10s. CVP 10. POX 97% on 6L NC. CT
output WNL. Frost draining adequate amounts of clear yellow urine. Surgical sites stable. All lines remain intact.
--- NOTE | 2023-09-19 16:00 | W.PN.UPDATE ---
Update Note
Progress Note Update
47-year-old male admitted 09/17/23 with chest pain and shortness of breath and found to have severe AI. Diuresed 3L into 09/18 with Lasix infusion. Underwent urgent AVR/root replacement 09/[address] Jones.
IV fluids: 1000
U.O.:� 350
Blood:� none
Wires:� 2 atrial , 1 ventricular
Inotropes:� Dobutamine @ 2
Pressors:� Levo @ 2
Sedatives:�Precedex
�
NEURO: sedated on Precedex, pupils +2mm B/L
RESP: #8OT @24cm> 600/100%/18/01. Lungs clear B/L. 2 mediastinal (0cc on arrival) and R/L pleural (5cc on arrival) chest tubes to -20cm suction. Sanguineous drainage
CV: RRR +S1, S2, no S3, no�rub, no murmur, + crisp prosthetic aortic click. Dermabond to median sternotomy. RIJ w/Head Waters locked @50. PA 30/19; CVP 8; C.O 4.85/CI 2.07
ABD: round, soft, no BS
EXT: no edema, +2/4 DP pulses B/L, no femoral bruit, left radial A-line intact
: Frost with clear yellow urine
�
A/P: POD #0 s/p Root replacement mechanical valved conduit (#25mm ON-X ascending aortic graft). Left atrial appendage ligation #35mm clip. Bilateral pleural drainage for effusions
[place]: EF�50-55%
- wean and extubate
- will need instruction regarding antibiotic prophylaxis for dental and invasive procedures
- will begin IV Heparin/Coumadin/ASA POD #1 with goal INR of 2-3 x 3 months for mechanical valve, then may decrease to goal of 1.5-2 long-term
�
# hyperglycemia (A1C 5.8)
- insulin infusion x 24h
- resume SSI after infusion discontinued
- will need glucose, repeat A1C in 3 months
�
# ETOH abuse-in recovery
- avoid opioid narcotics with Naltrexone 5mg daily
- multimodal pain therapy with Flexeril, Gabapentin, Toradol
[2023-09-19] MEDS: FLEXERIL 5 MG PO (16:13)
[2023-09-19] MEDS: NEURONTIN 100 MG PO ×2 (16:13→21:43)
[2023-09-19] MEDS: PACERONE 200 MG PO (16:13)
[2023-09-19 16:22] LABS: Hematocrit 35.2 % (39.0-52.0); Platelet Count 192 10^3/uL (130-400)
[2023-09-19] MEDS: LASIX 40 MG IV (16:35)
--- NOTE | 2023-09-19 17:00 | PTCARENOTE ---
CI 1.94 CT OFFICE ADMINISTRATION INSTRUCTOR notified
[2023-09-19] MEDS: ANCEF 5 IV (17:03)
[2023-09-19] MEDS: LOW STRENGTH ASPIRIN 81 MG PO (17:18)
[2023-09-19] MEDS: LIPITOR 40 MG PO (18:03)
[2023-09-19 18:13] LABS: Glucose - Point of Care 125 mg/dl (70-99)
--- NOTE | 2023-09-19 18:22 | W.PN.UPDATE ---
Update Note
Progress Note Update
Patient states he does not want to continue Naltrexone. States he had ordered on line and has been sober for 102 days prior to surgery. He and his confirm patient was in alcohol rehab 2 years ago and was initially prescribed the drug at the
facility. Discussed plan for multimodal pain control as standard of care using non-narcotic options whenever possible. Patient in agreement to avoid opioid narcotics and continue with current pain management strategy. Naltrexone DC'd.
--- NOTE | 2023-09-19 19:00 | PTCARENOTE ---
report received from previous RN, walking rounds done. pt in bed, drowsy but oriented x4. pt denies any pain. NSR 80's on monitor. B/L radial and DP pulses palpable. heart tones clear. left radial art line intact. pt normotensive. RIJ cordis + swan
intact w KVOs infusing. Dobut gtt infusing @ 3mcg. last CI 1.99. epicardial A+V wires intact to back up VVI. B/L breath sounds present. POX 96% on 2LNC. IS encouraged. CT x4 intact to -20cm wall suction, drainage WNL, no air leak present. hypoactive
bowel sounds present. Insulin gtt infusing per glycemic protocol. eagle catheter intact, draining clear yellow urine. UO adequate. all surgical sites stable. see worklist for full assessment, VS, and interventions. pt sleeping comfortably.
--- NOTE | 2023-09-19 19:30 | PTCARENOTE ---
pt tachycardic on monitor @ 1910, HR 140's. CT PA aware--instructed RN to decreased Dobut gtt to 1mg. orders received for IV Amio bolus.
[2023-09-19] MEDS: CORDARONE 103 MG IV (19:47)
[2023-09-19] MEDS: SENOKOT-S 1 TABLET PO (19:47)
[2023-09-19 20:08] LABS: Glucose - Point of Care 117 mg/dl (70-99)
[2023-09-19] MEDS: VANCOCIN 200 IV (21:16)
[2023-09-19 21:23] LABS: Glucose - Point of Care 116 mg/dl (70-99)
[2023-09-19] MEDS: TYLENOL 1000 MG PO (21:42)
[2023-09-19 22:00] LABS: Glucose - Point of Care 136 mg/dl (70-99)
--- NOTE | 2023-09-19 22:25 | W.PN.CT ---
Today's Communication / Plan
-
Plan:
-No major issues overnight. Hemodynamically and neurologically intact
-Successfully extubated on 09/19/23 @ 1500
-Weaned off Levophed gtt last night, dobutamine weaned to 1 @ 0600, on insulin per protocol
-Noted to be tachycardic with increased dobutamine @ 2 or 3
-Last CI 2.15, Mixed venous 98.1%?, U/O since OR 1700 mL
-Will initiate heparin to Coumadin bridge
-Cr 1.5 today, will avoid further Toradol/nephrotoxic meds
-Cont. current meds (ASA,Amiodarone, holding Lopressor while on dobutamine, Lipitor)
-Monitor chest tube drainage: 2meds 160/290, R/L pleural 25/145
-CXR this AM looks clear. F/U official report
-Wean off of dobutamine as tolerated
-D/C swan and a-line this AM once off dobutamine
-D/C insulin gtt per protocol, tele phase when off
-D/C eagle catheter
-Maintain cordis
-Maintain temporary PW (will cut before d/c home)
-Encourage use of IS
-Wean off of O2 as tolerated
-OOB into chair/Ambulate
-F/U blood cultures given lucency on preop panelipse
Assessment / Plan
-
Assessment:
-S/p Aortic valve resection/ Root replacement using a mechanical valved conduit (25mm ON-X ascending aortic graft)/Left atrial appendage ligation with 35mm clip/ Bilateral pleural drainage for effusions, by Dr. Jones, 09/19/23, pod#1
-Acute decompensated heart failure with respiratory decompensation secondary to severe acute aortic valve insufficiency
-Aortic root aneurysm measuring 4.8 cm
-Mild MR
-Sinus tachycardia/SVT
-Incomplete RBBB
-CP/MATHIS
-Hypertension
-History of EtOH abuse, in recovery (on naltrexone)
-Class 1 obesity (BMI 30.7)
-Prediabetes (hgb A1C 5.8)
-Obstructive sleep apnea (uses CPAP)
-Multiple PVCs and sinus tachycardia preoperatively
-Severely elevated LVEDP to 25 mmHg indicating significant volume overload
-Pulmonary edema and bilateral pleural effusion secondary to acute heart failure
-Preop panelipse with lucency (vancomycin added to periop abx, blood cultures obtained preop)
-S/p deviated septum repair
-Acute postop blood loss/Anemia (stable without blood transfusion)
-Acute postop atelectasis
-Acute postop hypovolemia with subsequent hypervolemia
-Acute postop ESTEFANY, 1.5
Discussed patient care with: Cardiology, Nursing, Respiratory Therapy, Pharmacy and Care Team
Subjective
Procedure
Aortic valve resection/ Root replacement using a mechanical valved conduit (25mm ON-X ascending aortic graft)/Left atrial appendage ligation with 35mm clip/ Bilateral pleural drainage for effusions, by Dr. Jones, 09/19/23
-
Date of Service: September 19, 2023
Pt c/o pleuritic chest pain, otherwise feel well
Objective Data
-
Lab Results
09/19/23 15:58
09/19/23 11:40
PT 18.4 Sec (11.4-14.6) H 09/19/23 11:40
INR 1.55 09/19/23 11:40
APTT 32.2 Sec (23.4-35.0) 09/19/23 11:40
Vital Signs
Vital Signs
Temp Pulse Resp BP Pulse Ox
99.6 F 89 15 96/66 94
09/19/23 22:00 09/19/23 22:00 09/19/23 22:00 09/19/23 20:00 09/19/23 22:00
CT Intake/Output/Weight
09/19/23 09/19/23 09/20/23
06:59 18:59 06:59
Intake Total 480 / 1031.5 609.9 / 888.2 278.3 / 888.2
Output Total 800 / 1900 1440 / 1855 415 / 1855
Balance -320 / -868.5 -830.1 / -966.8 -136.7 / -966.8
SaO2: 94 (2L)
Physical Exam
-
General: Awake, Oriented and AOx3
Cardiovascular: Regular rate & rhythm, No Murmurs (nice crisp mechanical valve sound), No Rub and No Gallop
Respiratory: Decreased Breath Sounds
Sternum: Stable
Incision: Clean, Dry, Intact and Dressing Intact
Extremities: Other (+trace edema)
Data Reviewed
-
Lab Results: Results Reviewed
Medications: Active Meds Reviewed
Chest X-Ray: Report Reviewed and Image Reviewed
ECG: Report Reviewed and Image Reviewed
[2023-09-19 23:00] LABS: Glucose - Point of Care 103 mg/dl (70-99)
--- NOTE | 2023-09-19 23:00 | PTCARENOTE ---
no acute changes, pt VSS. NSR 80's-90's. Levo remains off. Dobut gtt infusing @ 2mcg. last CI 2.03. POX 96% on 2LNC. CT output and UO WNL. Insulin gtt maintained. all surgical sites stable. pt sleeping between care.
[2023-09-20] VITALS (42 sets, daily range): BP systolic 81–129; BP diastolic 60–93; PULSE 87–126; O2SAT 93; BMI 30.9
--- NOTE | 2023-09-20 00:15 | PTCARENOTE ---
pt tachycardic 120's-130's. CT PA aware, instructed RN to decrease Dobut gtt to 1mcg. orders received for Amio bolus.
[2023-09-20] MEDS: TORADOL 30 MG IV (00:16)
[2023-09-20 00:17] LABS: Glucose - Point of Care 105 mg/dl (70-99)
[2023-09-20] MEDS: CORDARONE 103 MG IV ×2 (00:17→22:57)
[2023-09-20] MEDS: ANCEF 5 IV ×2 (00:18→08:56)
--- NOTE | 2023-09-20 03:00 | PTCARENOTE ---
pt VSS, no acute changes. NSR 80's-90's. Dobut gtt infusing @ 1.5mcg. last CI 2.29. Insulin gtt maintained. POX 97% on 2LNC. CT output and UO WNL. all surgical sites stable. pt resting between care.
[2023-09-20] MEDS: FLEXERIL 5 MG PO (04:44)
[2023-09-20 05:00] LABS: Hematocrit 33.4 % (39.0-52.0); Hemoglobin 11.5 g/dL (13.0-18.0); Mean Corp Hgb Conc. 34.4 g/dL (33.0-37.0); Mean Corpuscular Hgb 29.9 pg (27.0-31.0); Mean Corpuscular Volume 86.8 fL (80.0-94.0); Mean Platelet Volume 10.1 fL (7.4-10.4); Mixed Venous O2 Saturation 98.1 %; Platelet Count 170 10^3/uL (130-400); Red Blood Cell Count 3.85 10^6/uL (4.70-6.10); Red Cell Dist. Width 12.7 % (11.5-14.5); White Blood Cell Count 15.1 10^3/uL (4.8-10.8)
--- NOTE | 2023-09-20 05:00 | PTCARENOTE ---
AM labs drawn and sent. 0.25mcg dilaudid given IVP for 10/10 sternal incision pain.
[2023-09-20] MEDS: DILAUDID 0.25 MG IV ×4 (05:04→19:34)
[2023-09-20 05:35] LABS: Blood Urea Nitrogen 30 mg/dl (9-20); Calcium 8.5 mg/dl (8.4-10.2); Carbon Dioxide 27 mmol/L (22-30); Chloride 106 mmol/L (98-107); Estimated Creatinine Clearance 78 ml/min; Glucose 109 mg/dl (70-99); Magnesium 2.2 mg/dl (1.6-2.3); Potassium 4.4 mmol/L (3.5-5.1); Sodium 137 mmol/L (135-145); eGFR 56.72
--- NOTE | 2023-09-20 05:40 | DOWNTIME ---
There was a [employer] Client Assembly Riveter Downtime on 09/20/2023 from 0100 to 09/20/2023 at 0439. Downtime documentation of patient's care, including medication administrations, has been reconciled in the electronic record per guidelines. Refer to the
patient's paper chart under the miscellaneous tab to see printed paper medication records and downtime forms.
--- NOTE | 2023-09-20 06:00 | PTCARENOTE ---
RN instructed to keep pt in bed per CT PA.
[2023-09-20] MEDS: TYLENOL 1000 MG PO ×3 (06:04→21:53)
[2023-09-20 06:07] LABS: Glucose - Point of Care 105 mg/dl (70-99)
--- NOTE | 2023-09-20 06:49 | W.PN.INTV ---
Today's Communication / Plan
Recommendations
Postop care
F/u [facility]MA in 2-3 for reevaluation of DAVID
Reconsult prn
Assessment
-
Assessment:
Mr Matt Rodríguez is a 47/M adm 09-16 with acute CP, diaphoresis, nausea. At ER, POx 89% RA, up to 93% on O2 NC 2L. Chest CTA showed dilated Ao root. Seen by Cards, suspected AI confirmed by TTE. LHC with minor luminal irregularities. Seen by CTSx,
consider candidate for prompt AV replacement due to acuity of condition
Impression:
AI, s/p AVR and LORENA ligation 09-18
Conditions SECURITY ASSOCIATE:
HTN
Former ETOH use
Anxiety
Diverticulitis
DAVID noncompliant to CPAP: Reports history of DAVID diagnosis through a home-based sleep study 10 years ago at [facility], seemingly sleep apnea was considered mild, he was recommended CPAP but he never got it
Plan:
Extubated post surgery
IS
Asp precs
Pulmonary artery catheter parameters will be followed
Pressors/antihypertensive/inotropes/diuretics will be provided as needed
CXR postop with mild pulm vasc congestion, ET, RIJ SGC, sternotomy wiring, chest/med tubes
CXR today with interim extubation, RIJ SGC
Monitor chest tube output
Monitor hemoglobin
Monitor platelet count and coags
Transfuse blood product if needed
CT surgery following chest tubes
Monitor blood sugar
Insulin drip per protocol
Reports history of DAVID diagnosis through a home-based sleep study 10 years ago at [facility], seemingly sleep apnea was considered mild, he was recommended CPAP but he never got it
Agrees to follow BCMA in 2-3 m after recovering from surgery, information left in chart
DVT prophylaxis
Early nutrition
Early mobilization
Reconsult prn
Subjective Dataa
Subjective Data
Date of Service:
Date of Service: September 20, 2023
Chief Complaint: Consumer Insights Intern Follow Up
Subjective:
No major events reported overnight
Extubated per surgery
No major complaints except for incisional pain
Reports history of DAVID diagnosis through a home-based sleep study 10 years ago at [facility], seemingly sleep apnea was considered mild, he was recommended CPAP but he never got it
Review of Systems
General: Fever (n), Sweats (n), Chills (n) and Satisfactory Appetite
HEENT: Epistaxis (n) and Dysphagia (n)
Cardiopulmonary: Dyspnea (n), Cough (n) and Chest Pain (incisional)
GI: Abdominal Pain (n), Nausea (n) and Vomiting
Neuro: Weakness
Objective Data
Data Reviewed
Vital Signs / I&O / Oxygen:
Vital Signs
Temp Pulse Resp BP Pulse Ox
100.0 F 90 14 113/67 97
09/20/23 06:00 09/20/23 06:00 09/20/23 06:00 09/20/23 04:00 09/20/23 06:00
Intake and Output
09/18/23 09/19/23 09/20/23
06:59 06:59 06:59
Intake Total 238 / 238 1031.5 / 1031.5 1398.5 / 1398.5
Output Total 1150 / 1150 1900 / 1900 2220 / 2220
Balance -912 / -912 -868.5 / -868.5 -821.5 / -821.5
SaO2 [CPAP/PSV] 96
SaO2 [SIMV] 97
SaO2 97
Nasal Cannula flow liters per 2
minute
Physical Exam
General: Comfortable
HEENT: Normocephalic and Moist Mucous Membranes
Cardiovascular: Regular Rhythm and Peripheral Edema (trace NAVIN)
Respiratory: Clear, Non-Labored Respirations, Stridor (n) and Chest Tube
GI: Soft, Non Distended and Non Tender
Neurology: Awake, AO x 3 and No Motor Deficits
Skin: Warm
Labs/Micro/Reports
Lab Data
09/20/23 04:48
09/20/23 04:48
Laboratory Results
09/19/23 09/19/23 09/19/23
11:40 12:49 13:41
PT 18.4 H
INR 1.55
APTT 32.2
pH 7.39 7.47 H 7.43
pCO2 44 34 L 37
pO2 71 L 78 L 105
HCO3 26.6 24.7 24.6
O2 Delivery Level Vent
09/19/23 09/20/23
14:34 04:48
PT 16.0 H
INR 1.30
APTT
pH 7.50 H
pCO2 32 L
pO2 107
HCO3 25.0
O2 Delivery Level
Microbiology
09/17/23 18:02 Blood/Venous Blood Culture - Preliminary
No Growth in 48 hours- Final report to follow
09/17/23 17:34 Blood/Venous Blood Culture - Preliminary
No Growth in 48 hours- Final report to follow
--- NOTE | 2023-09-20 06:57 | W.PN.CT ---
Today's Communication / Plan
-
Plan:
-No major issues overnight. Hemodynamically and neurologically intact
-Successfully extubated on 09/19/23 @ 1500
-Weaned off Levophed gtt last night, dobutamine weaned to 1 @ 0600, on insulin per protocol
-Noted to be tachycardic with increased dobutamine @ 2 or 3
-Last CI 2.15, Mixed venous 98.1%?, U/O since OR 1700 mL
-Will initiate heparin to Coumadin bridge
-Cr 1.5 today, will avoid further Toradol/nephrotoxic meds
-Cont. current meds (ASA,Amiodarone, holding Lopressor while on dobutamine, Lipitor)
-Monitor chest tube drainage: 2meds 160/290, R/L pleural 25/145
-CXR this AM looks clear. F/U official report
-Wean off of dobutamine as tolerated
-D/C swan and a-line this AM once off dobutamine
-D/C insulin gtt per protocol, tele phase when off
-D/C eagle catheter
-Maintain cordis
-Maintain temporary PW (will cut before d/c home)
-Encourage use of IS
-Wean off of O2 as tolerated
-OOB into chair/Ambulate
-F/U blood cultures given lucency on preop panelipse
Assessment / Plan
-
Assessment:
-S/p Aortic valve resection/ Root replacement using a mechanical valved conduit (25mm ON-X ascending aortic graft)/Left atrial appendage ligation with 35mm clip/ Bilateral pleural drainage for effusions, by Dr. Jones, 09/19/23, pod#1
-Acute decompensated heart failure with respiratory decompensation secondary to severe acute aortic valve insufficiency
-Aortic root aneurysm measuring 4.8 cm
-Mild MR
-Sinus tachycardia/SVT
-Incomplete RBBB
-CP/MATHIS
-Hypertension
-History of EtOH abuse, in recovery (on naltrexone)
-Class 1 obesity (BMI 30.7)
-Prediabetes (hgb A1C 5.8)
-Obstructive sleep apnea (uses CPAP)
-Multiple PVCs and sinus tachycardia preoperatively
-Severely elevated LVEDP to 25 mmHg indicating significant volume overload
-Pulmonary edema and bilateral pleural effusion secondary to acute heart failure
-Preop panelipse with lucency (vancomycin added to periop abx, blood cultures obtained preop)
-S/p deviated septum repair
-Acute postop blood loss/Anemia (stable without blood transfusion)
-Acute postop atelectasis
-Acute postop hypovolemia with subsequent hypervolemia
-Acute postop ESTEFANY, 1.5
Discussed patient care with: Cardiology, Nursing, Respiratory Therapy, Pharmacy and Care Team
Subjective
Procedure
ortic valve resection/ Root replacement using a mechanical valved conduit (25mm ON-X ascending aortic graft)/Left atrial appendage ligation with 35mm clip/ Bilateral pleural drainage for effusions, by Dr. Jones, 09/19/23
-
Date of Service: September 20, 2023
Pt c/o pleuritic chest pain, otherwise feels well
Objective Data
-
Lab Results
09/20/23 04:48
09/20/23 04:48
PT 16.0 Sec (11.4-14.6) H 09/20/23 04:48
INR 1.30 09/20/23 04:48
APTT 32.2 Sec (23.4-35.0) 09/19/23 11:40
Vital Signs
Vital Signs
Temp Pulse Resp BP Pulse Ox
100.0 F 90 14 113/67 97
09/20/23 06:00 09/20/23 06:00 09/20/23 06:00 09/20/23 04:00 09/20/23 06:00
CT Intake/Output/Weight
09/19/23 09/19/23 09/20/23
06:59 18:59 06:59
Intake Total 480 / 1031.5 609.9 / 1398.5 788.6 / 1398.5
Output Total 800 / 1900 1440 / 2220 780 / 2220
Balance -320 / -868.5 -830.1 / -821.5 8.6 / -821.5
SaO2: 97 (@L)
Physical Exam
-
General: Awake, Oriented and AOx3
Cardiovascular: Regular rate & rhythm, No Murmurs (nice crisp mechanical valve), No Rub and No Gallop
Respiratory: Decreased Breath Sounds (at bases, otherwise clear )
Sternum: Stable
Incision: Clean, Dry, Intact and Dressing Intact
Extremities: Other (+trace edema)
Data Reviewed
-
Lab Results: Results Reviewed
Medications: Active Meds Reviewed
Chest X-Ray: Report Reviewed and Image Reviewed
ECG: Report Reviewed and Image Reviewed
--- NOTE | 2023-09-20 06:57 | W.PN.ANS.POP ---
Anesthesia Post Operative
- Anesthesia Post Op Note
Vital Signs Stable-See Nursing Note: Yes
Airway Patent: Yes
Adequate Pain Control: Yes
Change in Mental Status: No
Current Postoperative Nausea & Vomiting: No
Anesthesia Complications: No
General Anesthetic Recall: No
Unplanned Admission: No
Post Op Hydration Adequate: Yes
[2023-09-20 08:15] LABS: Glucose - Point of Care 92 mg/dl (70-99)
[2023-09-20] MEDS: LIDOCAINE 4% PATCH 1 PATCH TOPICAL (08:53)
[2023-09-20] MEDS: LOW STRENGTH ASPIRIN 81 MG PO (08:54)
[2023-09-20] MEDS: PACERONE 200 MG PO ×3 (08:54→21:53)
[2023-09-20] MEDS: MAGNESIUM OXIDE 500 MG PO ×2 (08:54→20:22)
[2023-09-20] MEDS: PROTONIX 40 MG PO (08:54)
[2023-09-20] MEDS: SENOKOT-S 1 TABLET PO ×2 (08:54→20:22)
[2023-09-20] MEDS: NEURONTIN 100 MG PO ×3 (08:54→21:53)
[2023-09-20] MEDS: BACTROBAN 2% OINTMENT 1 APPLIC NASAL ×2 (08:55→20:22)
[2023-09-20] MEDS: VANCOCIN 200 IV (08:56)
--- NOTE | 2023-09-20 09:00 | PTCARENOTE ---
Received patient from prior shift. Pt assessment completed, see documentation in medical record. Pt education initiated about ISB use, cough and deep breathing with the heart pillow, mobility, nutrition, pain management, sternal precautions and rest
periods. Pt asked to demonstrate ISB, and patient education completed to correct technique. Pt demonstrated understanding of education using the teach back method. Proper technique with the incentive spirometer will be reinforced, and patient
instructed to use the ISB ten times per hour (minimum). Medication education including medication side effects provided for all 0800 medications prior to administering AM medications. Pt still has PA cath, art line and will deline after dobutamine
off.
--- NOTE | 2023-09-20 09:09 | PTOTSP ---
Chart reviewed. Patient underwent general anesthesia for AVR, AORTIC ROOT REPLACEMENT, LORENA CLIP on 09/19/23.
As per rehab protocol, PT/OT will require new orders when patient is medically appropriate to participate in evaluation. Will discuss with RN.
[2023-09-20 09:27] LABS: Glucose - Point of Care 84 mg/dl (70-99)
[2023-09-20 10:11] LABS: Glucose - Point of Care 93 mg/dl (70-99)
--- NOTE | 2023-09-20 10:50 | W.PN.UPDATE ---
Update Note
Progress Note Update
Skin cleansed with CHG. Suture removed and 2 atrial and a bipolar epicardial ventricular pacer wire were removed without difficulty. Bedrest x 1 hour. Vital signs q15min x 4
[2023-09-20 11:18] LABS: Glucose - Point of Care 100 mg/dl (70-99)
[2023-09-20 11:18] LABS: Glucose - Point of Care 100 mg/dl (70-99)
[2023-09-20 11:33] LABS: APTT 34.9 Sec (23.4-35.0)
--- NOTE | 2023-09-20 12:00 | PTCARENOTE ---
Prior patient assessment remains unchanged. Pt resting comfortably in the chair. Heart sounds S1S2 and lungs with crackles and diminished breath sounds on left base. Pt instructed on ISB use and atelectasis. Pain remains controlled at a 3 out of
10. Pt using ISB every hour, and ISB technique has improved. Demonstrates proper sternal precautions and heart pillow use.
[2023-09-20 12:26] LABS: Glucose - Point of Care 108 mg/dl (70-99)
[2023-09-20] MEDS: NSS 500 IV (12:43)
--- NOTE | 2023-09-20 12:44 | PTCARENOTE ---
Pt working with physical therapy now to get up in the chair. His pain level is a 4. Non pharmacological methods of pain management (guided imagery, back rub, deep breathing) discussed with the patient and his .
--- NOTE | 2023-09-20 13:44 | PTCARENOTE ---
Pt complaining of shortness of breath. Pulse ox down to 88 percent. Two liters nasal cannula applied and patient medicated for pain. Pt reports he feels better and no longer short of breath. Opioid use sparingly due to history of addiction.
--- NOTE | 2023-09-20 14:15 | PTCARENOTE ---
Pt reports pain is controlled and he is feeling well. He ambulated approximately 20 feet and returned to the chair for complaints of dizziness. VSS.
--- NOTE | 2023-09-20 14:32 | W.PN.CD ---
Today's Communication / Plan
-
- looks and feels well
- pain and dyspnea controlled
Impression / Plan
-
Impression/Plan: 47M with subacute onset of chest pain and dyspnea, abnormal troponin and new, severe aortic insufficiency.
#Severe AI S/P Root replacement using a mechanical valved conduit (25mm ON-X ascending aortic graft) with LORENA clip by Dr. Jones 09/19/23
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 Postoperative EF 55-60% without regional wall motion abnormality, unchanged. Mean gradient 5 mmHg postoperatively. 1 defibrillation event for VF when air entrainment occurred in right coronary.
Bilateral pleural spaces drained
-On low-dose dobutamine
-Anticoagulation plan: INR goal for first 3 months 2�3 with ASA, then 1.5�2.0 and ASA for life.
-Follow telemetry
#CP/dyspnea
#Prior HTN - Chronic, stable.
#Prior alcoholism
-Chronic, stable.
-Continued sobriety encouraged.
#iRBBB
#DAVID/CPAP
Subjective/Interval History:
Mild exertional dyspnea improved with spirometry
DATA:
TTE, 09/17/2023:
CONCLUSIONS
Hyperdynamic systolic function. Left ventricular ejection fraction is 65-70%.
Severe aortic regurgitation. The aortic valve does not appear to coapt.
Dilated aortic root (4.8 cm) with normal ascending aorta
No prior study available for comparison.
CTPA, 09/17/2023:
IMPRESSION:
1. No evidence of pulmonary embolism.
2. Mild pneumonia throughout the right lung.
3. Small right and trace left pleural effusions
The aortic root measures up to 4.4 cm.
Physical Exam
Vital Signs/Labs
Vital Signs
Temp Pulse Resp BP Pulse Ox
37.8 C 99 15 109/67 93
09/20/23 06:00 09/20/23 14:15 09/20/23 14:04 09/20/23 14:15 09/20/23 14:15
09/19/23 09/20/23 09/21/23
06:59 06:59 06:59
Actual Weight 238 lb 15.697 oz 240 lb 11.916 oz
09/20/23 04:48
09/20/23 04:48
PT 16.0 Sec (11.4-14.6) H 09/20/23 04:48
INR 1.30 09/20/23 04:48
APTT Cancelled 09/20/23 07:24
Magnesium 2.2 mg/dl (1.6-2.3) 09/20/23 04:48
Triglycerides 171 mg/dl (10-149) H 09/18/23 04:09
LDL Cholesterol, Calc 80 mg/dl 09/18/23 04:09
VLDL Cholesterol, Calc 34 mg/dl (0-30) H 09/18/23 04:09
HDL Cholesterol 34 mg/dl 09/18/23 04:09
09/17/23
11:02
Kkb-V-Vhwhorgtuuj Pept 2470
LAB Results
09/17/23 09/17/23
14:03 19:54
Troponin I 0.710 H* 0.526 H* D
Physical Exam
Constitutional: No acute distress
EENT: Anicteric and Moist mucous membranes
Cardiovascular: Rhythm & rate is regular, Pedal edema is absent, Diastolic murmur absent and Systolic murmur present
Respiratory: Respiratory effort normal
GI: Soft, Distention absent, Non tender and Normal bowel sounds
Neuro/Psych: Alert and Oriented
Data Reviewed
-
Date of Service: September 20, 2023
--- NOTE | 2023-09-20 15:07 | PTCARENOTE ---
Prior patient assessment remains unchanged. Pt resting comfortably in the chair. Heart sounds S1S2 and lungs with equal breath sounds but crackles at right base. Pain is somewhat controlled at a 4 out of 10. Tramadol will be started for pain. Pt
using ISB every hour, and ISB technique has improved. Demonstrates proper sternal precautions and heart pillow use. Heart sounds unchanged with audible click.
[2023-09-20] MEDS: ULTRAM 50 MG PO ×2 (15:26→20:22)
--- NOTE | 2023-09-20 16:16 | CM ---
CM following for DC planning needs.
Reviewed initial assessment. Pt. resides w/ spouse in a private, 2 story home. Functionally, patient is indep. w/ ADLs, mobility.
Anticipated DC plan is for home w/ [facility]itional [facility] RN.
CM to follow.
[2023-09-20 16:57] LABS: Glucose - Point of Care 125 mg/dl (70-99)
--- NOTE | 2023-09-20 17:22 | PTCARENOTE ---
Pt will go home on warfarin therapy. Pt education completed about warfarin, low vitamin K diet, bleeding precautions, daily warfarin dose, and PT level monitoring. Pt instructed to take coumadin at the same time daily in the evening. Coumadin
education sheet given to the patient.
[2023-09-20] MEDS: COUMADIN 5 MG PO (17:41)
[2023-09-20] MEDS: LIPITOR 40 MG PO (17:41)
--- NOTE | 2023-09-20 17:52 | PTCARENOTE ---
Pt sitting up in chair, oxygen d/c and he is on room air. Pt was able to void and is eating dinner now.
--- NOTE | 2023-09-20 18:08 | PTCARENOTE ---
It was discovered that the cardiac output and index from this am did not download. Cardiac output was assessed three times, and the cardiac index was greater than 2.2 each time, including after the dobutamine was stopped.
--- NOTE | 2023-09-20 18:49 | PTCARENOTE ---
Pt ambulated approximately 100 feet and tolerated well. He still continues to require 2 liters nasal cannula
--- NOTE | 2023-09-20 21:00 | PTCARENOTE ---
Assumed care of patient from daysmaft RN. Walking rounds completed. Pt AAOx3. LEE. Following commands appropriately. SR to sinus tach on the monitor. HR 90-100s. +click. No edema. +pulses throughout. BP stable. Pt on 2L NC. Mediastinal CTx2 to -20
suction, no airleak/tidaling/crepitus noted, and output appropriate. Deep breathing and IS encouraged. Abdomen soft/nontender. +gas. Voiding. All surgical sites stable. Right IJ cordis w/ KVO infusing CDI. PIV x1 CDI. Pt c/o pain - see MAR. See
worklist for full nursing assessment, VS, and interventions. Pt resting in bed at this time. Family at the bedside. Call irvin within reach.
[2023-09-21] VITALS (15 sets, daily range): BP systolic 109–149; BP diastolic 65–89; PULSE 89; O2SAT 98; BMI 31.0
[2023-09-21] MEDS: DILAUDID 0.25 MG IV ×2 (00:31→04:46)
[2023-09-21] MEDS: ULTRAM 50 MG PO ×4 (03:32→20:04)
[2023-09-21 04:40] LABS: Hematocrit 29.2 % (39.0-52.0); Hemoglobin 10.2 g/dL (13.0-18.0); Mean Corp Hgb Conc. 34.9 g/dL (33.0-37.0); Mean Corpuscular Hgb 29.8 pg (27.0-31.0); Mean Corpuscular Volume 85.4 fL (80.0-94.0); Mean Platelet Volume 10.7 fL (7.4-10.4); Platelet Count 198 10^3/uL (130-400); Red Blood Cell Count 3.42 10^6/uL (4.70-6.10); White Blood Cell Count 16.1 10^3/uL (4.8-10.8)
[2023-09-21 04:51] LABS: INR 1.51; PT 18.3 Sec (11.4-14.6)
[2023-09-21 04:52] LABS: APTT 42.3 Sec (23.4-35.0)
--- NOTE | 2023-09-21 05:00 | PTCARENOTE ---
Pt reassessed. SR w/ PVCs on monitor. HR 90s. Pt on 2 L NC. POX 96-99%. CT assessment unchanged from original. All surgical sites stable. Labs drawn and sent. Pt assisted OOB to void in bathroom and repositioned into bed. Pt c/o pain - see MAR. Call
irvin within reach.
[2023-09-21 05:06] LABS: Blood Urea Nitrogen 36 mg/dl (9-20); Calcium 7.9 mg/dl (8.4-10.2); Carbon Dioxide 31 mmol/L (22-30); Chloride 99 mmol/L (98-107); Estimated Creatinine Clearance 98 ml/min; Glucose 134 mg/dl (70-99); Magnesium 2.2 mg/dl (1.6-2.3); Potassium 4.3 mmol/L (3.5-5.1); Sodium 132 mmol/L (135-145); eGFR > 60.00
[2023-09-21] MEDS: TYLENOL 1000 MG PO ×3 (06:36→20:47)
--- NOTE | 2023-09-21 06:38 | W.PN.CT ---
Today's Communication / Plan
-
-pod #2
-no significant issues overnight. Gave Amio bolus x1 for frequent PACs (hr 90s)- resumed BB
-no drips.
-pw, Pleur CTs and Frost removed 09/19
-med CT output 45/170 in 12/24 hrs
-iv Heparin is to be started today for mechanical AVR
-Coumadin started 09/19 - got 5 mg. INR today 1.51
-follow blood cx result from 09/18 given lucency on preop panelipse
-Cr back at baseline - 1.2 today (1.5 on 09/19, 1.2 preop). Avoiding further Toradol/nephrotoxic meds
-encourage IS, OOB
Assessment / Plan
-
Assessment:
-S/p Aortic valve resection/ Root replacement using a mechanical valved conduit (25mm ON-X ascending aortic graft)/Left atrial appendage ligation with 35mm clip/ Bilateral pleural drainage for effusions, by Dr. Jones, 09/19/23, pod#2
-Acute decompensated heart failure with respiratory decompensation secondary to severe acute aortic valve insufficiency
-Aortic root aneurysm measuring 4.8 cm
-Mild MR
-Sinus tachycardia/SVT
-Incomplete RBBB
-CP/MATHIS
-Hypertension
-History of EtOH abuse, in recovery for over 100 days (on naltrexone at home)
-Class 1 obesity (BMI 30.7)
-Prediabetes (hgb A1C 5.8)
-Obstructive sleep apnea (uses CPAP)
-Multiple PVCs and sinus tachycardia preoperatively
-Severely elevated LVEDP to 25 mmHg indicating significant volume overload
-Pulmonary edema and bilateral pleural effusion secondary to acute heart failure
-Preop panelipse with lucency (vancomycin added to periop abx, blood cultures obtained preop)
-S/p deviated septum repair
-Acute postop blood loss/Anemia (stable without blood transfusion)
-Acute postop atelectasis
-Acute postop hypovolemia with subsequent hypervolemia
-Acute postop ESTEFANY, 1.5
-Heparin to Coumadin bridge postop for mechanical valve
Discussed patient care with: Nursing and Care Team
Subjective
Procedure
ortic valve resection/ Root replacement using a mechanical valved conduit (25mm ON-X ascending aortic graft)/Left atrial appendage ligation with 35mm clip/ Bilateral pleural drainage for effusions, by Dr. Jones, 09/19/23
-
Date of Service: September 21, 2023
Objective Data
-
PT 16.0 Sec (11.4-14.6) H 09/20/23 04:48
INR 1.30 09/20/23 04:48
APTT Cancelled 09/20/23 07:24
Vital Signs
Vital Signs
Temp Pulse Resp BP Pulse Ox
98.7 F 97 16 116/73 96
09/21/23 00:00 09/21/23 00:30 09/21/23 00:00 09/21/23 00:00 09/21/23 00:30
CT Intake/Output/Weight
09/20/23 09/20/23 09/21/23
06:59 18:59 06:59
Intake Total 788.6 / 1443.5 766.4 / 816.4 50 / 816.4
Output Total 780 / 2260 746 / 771 25 / 771
Balance 8.6 / -816.5 20.4 / 45.4 25 / 45.4
SaO2: 96
Physical Exam
-
General: Awake, Oriented and AOx3
Cardiovascular: Regular rate & rhythm, No Murmurs (sharp S2 click), No Rub and No Gallop
Respiratory: Decreased Breath Sounds (at bases, otherwise clear )
Sternum: Stable
Incision: Clean, Dry, Intact and Dressing Intact
Extremities: Other (+trace edema)
Data Reviewed
-
Lab Results: Results Reviewed
Medications: Active Meds Reviewed
Chest X-Ray: Report Reviewed and Image Reviewed
ECG: Report Reviewed and Image Reviewed
--- NOTE | 2023-09-21 08:00 | PTCARENOTE ---
Received pt from night guard RN; pt AAOx3 and resting comfortably in chair; NSR on monitor and VSS; RIJ Cordis and PIVx1 patent; lungs diminished; CT x2 to -20 wall suction no air leak and no crepitus noted; positive bowel sounds; pt voiding clear
yellow urine; palpable pulses throughout; no edema noted; surgical sites C/D/I; see nursing documentation for further details.
--- NOTE | 2023-09-21 08:17 | W.PN.CD ---
Today's Communication / Plan
-
Diuresis.
Incentive spirometry.
Ambulation.
Chest tube management per CT surgery.
Pain control.
Impression / Plan
-
Impression/Plan: 47M with subacute onset of chest pain and dyspnea, abnormal troponin and new, severe aortic insufficiency.
#Severe AI
-S/P Root replacement using a mechanical valved conduit (#25 ON-X ascending aortic graft) with LAAL (#35 AtriClip) by Dr. Jones, 09/19/23.
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 Postoperative EF 55-60% without regional wall motion abnormality, unchanged. Mean gradient 5 mmHg postoperatively. One defibrillation event for VF when air entrainment occurred in right coronary.
-Wean dobutamine.
-Anticoagulation plan: INR goal for first 3 months 2�3 with ASA, then 1.5�2.0 and ASA for life.
-Incentive spirometry, ambulation.
-It is likely time for some diuresis.
#Prior HTN
-Chronic, stable.
#Prior alcoholism
-Chronic, stable.
-Continued sobriety encouraged.
#iRBBB
#DAVID/CPAP
Critical Care Time = 31 minutes.
Subjective/Interval History:
Naltrexone discontinued.
Pacemaker wires, Kinmundy-Salas catheter discontinued yesterday. CI 2.15 prior to d/c.
Weight is up to 109.4 (108.4 preop, but 111.1 on admission).
SAO2 96%.
Warfarin started yesterday.
Na down to 132, creatinine down to 1.2.
DATA:
Cardiac Catheterization, 09/18/2023:
CONCLUSIONS
1. Right dominant circulation with minor luminal irregularities throughout the entire coronary tree.
2. Moderate to severe aortic root dilation.
3. Severe aortic valve insufficiency.
4. Severely elevated filling pressures (LVEDP = 25 mmHg) with a rapid upward slope from the LV diastolic pressure of 5 mmHg, consistent with severe aortic valve insufficiency as well as evidence of diastolic dysfunction (A wave to 45 mmHg).
TTE, 09/17/2023:
CONCLUSIONS
Hyperdynamic systolic function. Left ventricular ejection fraction is 65-70%.
Severe aortic regurgitation. The aortic valve does not appear to coapt.
Dilated aortic root (4.8 cm) with normal ascending aorta
No prior study available for comparison.
CTPA, 09/17/2023:
IMPRESSION:
1. No evidence of pulmonary embolism.
2. Mild pneumonia throughout the right lung.
3. Small right and trace left pleural effusions
The aortic root measures up to 4.4 cm.
Physical Exam
Vital Signs/Labs
Vital Signs
Temp Pulse Resp BP Pulse Ox
36.9 C 92 20 126/77 96
09/21/23 07:53 09/21/23 07:51 09/21/23 07:53 09/21/23 07:51 09/21/23 07:53
09/19/23 09/20/23 09/21/23
11:59 11:59 11:59
Actual Weight 108.4 kg 109.2 kg 109.4 kg
09/21/23 04:25
09/21/23 04:25
PT 18.3 Sec (11.4-14.6) H 09/21/23 04:25
INR 1.51 09/21/23 04:25
APTT 42.3 Sec (23.4-35.0) H 09/21/23 04:25
Magnesium 2.2 mg/dl (1.6-2.3) 09/21/23 04:25
Triglycerides 171 mg/dl (10-149) H 09/18/23 04:09
LDL Cholesterol, Calc 80 mg/dl 09/18/23 04:09
VLDL Cholesterol, Calc 34 mg/dl (0-30) H 09/18/23 04:09
HDL Cholesterol 34 mg/dl 09/18/23 04:09
09/17/23
11:02
Oeo-L-Hnqvrkyzspl Pept 2470
Physical Exam
Constitutional: No acute distress and Comfortable
EENT: Anicteric and Moist mucous membranes
Cardiovascular: Rhythm & rate is regular, Pedal edema is absent, JVD pressure is normal, Murmur/rub/gallop absent and Other ([place], mechanical S2.)
Respiratory: Respiratory effort normal and Other (Decreased breath sounds throughout.)
GI: Soft, Distention absent, Flat, Non tender and Normal bowel sounds
Neuro/Psych: AO x 3
Data Reviewed
-
Date of Service: September 21, 2023
Medical Decision Making: Reviewed Test Results, Independent Historian Assessment and Test Interpretation
EKG: Tracing Personally Visualized and interpreted and Report Reviewed by me
Echo: Tracing Personally Visualized and interpreted and Report Reviewed by me
X-Ray/CT/US/MRI/NUC/PET: Image Personally Visualized and interpreted and Report Reviewed by me
Medical Tests (PFT, Pathology etc): Image Personally Visualized and interpreted and Report Reviewed by me
Labs: Labs Reviewed by me
[2023-09-21] MEDS: MAGNESIUM OXIDE 500 MG PO ×2 (08:25→19:50)
[2023-09-21] MEDS: LOW STRENGTH ASPIRIN 81 MG PO (08:25)
[2023-09-21] MEDS: BACTROBAN 2% OINTMENT 1 APPLIC NASAL ×2 (08:26→19:50)
[2023-09-21] MEDS: SENOKOT-S 1 TABLET PO ×2 (08:26→19:50)
[2023-09-21] MEDS: NEURONTIN 100 MG PO ×3 (08:26→20:47)
[2023-09-21] MEDS: PACERONE 200 MG PO ×3 (08:26→20:47)
[2023-09-21] MEDS: LIDOCAINE 4% PATCH 1 PATCH TOPICAL (08:26)
[2023-09-21] MEDS: PROTONIX 40 MG PO (08:26)
[2023-09-21] MEDS: LOPRESSOR 12.5 MG PO ×2 (08:51→19:50)
[2023-09-21] MEDS: HEPARIN 25000 UNITS/250 ML IV (09:28)
--- NOTE | 2023-09-21 09:46 | PTCARENOTE ---
Mediastinal Chest tubes X2 removed per CVNP order; Heparin drip started at 500units/hr per order.
[2023-09-21] MEDS: NSS IV (10:30)
--- NOTE | 2023-09-21 12:55 | PTCARENOTE ---
assumed care of pt from previous shift RN, sinus rhythm on tele, VSS, surgical sites intact, cordis and PIV flush easily. Heparin infusing at 500units/hr. Plan of care reviewed w the pt and questions encouraged.
--- NOTE | 2023-09-21 14:26 | CM ---
CM following for DC planning needs.
Met w/ patient at bedside. He reports that he is feeling well. He is hopeful for DC on Monday as spouse will be home all day.
Plan is to go home w/ spouse to address: [address] + [facility] RN.
Cm will cont. to follow.
[2023-09-21 15:41] LABS: APTT 44.1 Sec (23.4-35.0)
--- NOTE | 2023-09-21 16:09 | PTCARENOTE ---
PTT result reported to [facility], instructed to increase heparin infusion to 800 units/hr and recheck PTT in 2hrs.
[2023-09-21 16:22] LABS: INR 1.56; PT 18.8 Sec (11.4-14.6)
[2023-09-21] MEDS: COUMADIN 2 MG PO (17:51)
[2023-09-21] MEDS: LIPITOR 40 MG PO (17:52)
[2023-09-21] MEDS: COUMADIN 5 MG PO (17:52)
[2023-09-21 18:36] LABS: APTT 54.5 Sec (23.4-35.0)
--- NOTE | 2023-09-21 20:00 | PTCARENOTE ---
assumed care of pt from previous RN. pt A&Ox4, resting in chair at time of assessment. SR on tele-monitor, HR 90s, low 100s w/ exertion. no edema, palpable peripheral pulses. POX 92% on RA. abd s/n, +BS. pt voiding in bathroom. sternal incision
approximated w/ surgi-glue, CONTACT LENS EDGE BUFFER. R IJ cordis w/ KVO. PIV intact. heparin gtt infusing. pt assisted back to bed after assessment completed. plan of care discussed w/ pt, pt in agreement. see worklist for complete nursing assessment, interventions,
VS, and I&Os.
[2023-09-21 21:09] LABS: APTT 53.5 Sec (23.4-35.0)
[2023-09-21 23:51] LABS: APTT 69.1 Sec (23.4-35.0)
[2023-09-22] VITALS (10 sets, daily range): BP systolic 108–136; BP diastolic 67–77; PULSE 91; BMI 31.2
--- NOTE | 2023-09-22 | PTCARENOTE ---
no change in assessment. VSS. no c/o pain at this time.
[2023-09-22 01:55] LABS: APTT 74.5 Sec (23.4-35.0)
[2023-09-22] MEDS: ULTRAM 50 MG PO ×2 (03:44→08:11)
[2023-09-22 03:53] LABS: Hematocrit 25.7 % (39.0-52.0); Hemoglobin 8.9 g/dL (13.0-18.0); Mean Corp Hgb Conc. 34.6 g/dL (33.0-37.0); Mean Corpuscular Hgb 30.3 pg (27.0-31.0); Mean Corpuscular Volume 87.4 fL (80.0-94.0); Mean Platelet Volume 10.7 fL (7.4-10.4); Platelet Count 164 10^3/uL (130-400); Red Blood Cell Count 2.94 10^6/uL (4.70-6.10); Red Cell Dist. Width 12.6 % (11.5-14.5); White Blood Cell Count 11.8 10^3/uL (4.8-10.8)
[2023-09-22 04:11] LABS: INR 1.94; PT 22.3 Sec (11.4-14.6)
[2023-09-22 05:07] LABS: Blood Urea Nitrogen 26 mg/dl (9-20); Calcium 7.4 mg/dl (8.4-10.2); Carbon Dioxide 33 mmol/L (22-30); Chloride 96 mmol/L (98-107); Estimated Creatinine Clearance > 125 ml/min; Glucose 110 mg/dl (70-99); Magnesium 2.3 mg/dl (1.6-2.3); Sodium 130 mmol/L (135-145); eGFR > 60.00
--- NOTE | 2023-09-22 05:56 | W.PN.CT ---
Documented by User: Opal Saenz PA-C 09/22/23 06:03
Today's Communication / Plan
-
-pod #3
-no significant issues overnight.
-no drips.
-pw, Pleur CTs and Frost removed 09/[address] 09/20
-iv Heparin started 09/20 for mechanical AVR. Currently, at 1200 units /hr. PTT 71.0 (goal 60-90)
-Coumadin started 09/19 - got 5, 7 mg. INR today 1.94
-follow blood cx result from 09/18 given lucency on preop panelipse
-Cr is back at baseline. Avoiding further Toradol/nephrotoxic meds
-encourage IS, OOB
-possible d/c 09/22
Assessment / Plan
-
Assessment:
-S/p Aortic valve resection/ Root replacement using a mechanical valved conduit (25mm ON-X ascending aortic graft)/Left atrial appendage ligation with 35mm clip/ Bilateral pleural drainage for effusions, by Dr. Jones, 09/19/23, pod#3
-Acute decompensated heart failure with respiratory decompensation secondary to severe acute aortic valve insufficiency
-Aortic root aneurysm measuring 4.8 cm
-Mild MR
-Sinus tachycardia/SVT
-Incomplete RBBB
-CP/MATHIS
-Hypertension
-History of EtOH abuse, in recovery for over 100 days (on naltrexone at home)
-Class 1 obesity (BMI 30.7)
-Prediabetes (hgb A1C 5.8)
-Obstructive sleep apnea (uses CPAP)
-Multiple PVCs and sinus tachycardia preoperatively
-Severely elevated LVEDP to 25 mmHg indicating significant volume overload
-Pulmonary edema and bilateral pleural effusion secondary to acute heart failure
-Preop panelipse with lucency (vancomycin added to periop abx, blood cultures obtained preop)
-S/p deviated septum repair
-Acute postop blood loss/Anemia (stable without blood transfusion)
-Acute postop atelectasis
-Acute postop hypovolemia with subsequent hypervolemia
-Acute postop ESTEFANY, 1.5
-Heparin to Coumadin bridge postop for mechanical valve
Discussed patient care with: Nursing and Care Team
Subjective
Procedure
ortic valve resection/ Root replacement using a mechanical valved conduit (25mm ON-X ascending aortic graft)/Left atrial appendage ligation with 35mm clip/ Bilateral pleural drainage for effusions, by Dr. Jones, 09/19/23
-
Date of Service: September 22, 2023
Objective Data
-
Lab Results
09/22/23 03:43
09/22/23 03:43
PT 22.3 Sec (11.4-14.6) H 09/22/23 03:43
PT Cancelled 09/22/23 03:43
INR 1.94 09/22/23 03:43
INR Cancelled 09/22/23 03:43
APTT 71.0 Sec (23.4-35.0) H 09/22/23 03:43
Vital Signs
Vital Signs
Temp Pulse Resp BP Pulse Ox
98.6 F 89 16 117/71 95
09/22/23 04:00 09/22/23 04:30 09/22/23 04:00 09/22/23 03:46 09/22/23 04:30
CT Intake/Output/Weight
09/21/23 09/21/23 09/22/23
06:59 18:59 06:59
Intake Total 90 / 856.4 70 / 304 234 / 304
Output Total 445 / 1191
Balance -355 / -334.6 60 / 294 234 / 294
SaO2: 95

Documented by User: Malia Gentile PA-C 09/22/23 08:36
Assessment / Plan
-
Assessment:
-S/p Aortic valve resection/ Root replacement using a mechanical valved conduit (25mm ON-X ascending aortic graft)/Left atrial appendage ligation with 35mm clip/ Bilateral pleural drainage for effusions, by Dr. Jones, 09/19/23, pod#3
-Acute diastolic heart failure with respiratory decompensation secondary to severe acute aortic valve insufficiency
-Aortic root aneurysm measuring 4.8 cm
-Mild MR
-Sinus tachycardia/SVT
-Incomplete RBBB
-CP/MATHIS
-Hypertension
-History of EtOH abuse, in recovery for over 100 days (on naltrexone at home)
-Class 1 obesity (BMI 30.7)
-Prediabetes (hgb A1C 5.8)
-Obstructive sleep apnea (uses CPAP)
-Multiple PVCs and sinus tachycardia preoperatively
-Severely elevated LVEDP to 25 mmHg indicating significant volume overload
-Pulmonary edema and bilateral pleural effusion secondary to acute heart failure
-Preop panelipse with lucency (vancomycin added to periop abx, blood cultures obtained preop)
-S/p deviated septum repair
-Acute postop blood loss/Anemia (stable without blood transfusion)
-Acute postop atelectasis
-Acute postop hypovolemia with subsequent hypervolemia
-Acute postop ESTEFANY, 1.5
-Heparin to Coumadin bridge postop for mechanical valve
[2023-09-22] MEDS: TYLENOL 1000 MG PO ×3 (06:17→22:31)
--- NOTE | 2023-09-22 07:14 | W.PN.CD ---
Today's Communication / Plan
-
Start furosemide 40 mg IV and monitor response.
Reduce warfarin to 5 mg daily.
Ambulate.
Incentive spirometry.
Impression / Plan
-
Impression/Plan: 47M with subacute onset of chest pain and dyspnea, abnormal troponin and new, severe aortic insufficiency.
#Severe AI
-S/P Root replacement using a mechanical valved conduit (#25 ON-X ascending aortic graft) with LAAL (#35 AtriClip) by Dr. Jones, 09/19/23.
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 Postoperative EF 55-60% without regional wall motion abnormality, unchanged. Mean gradient 5 mmHg postoperatively. One defibrillation event for VF when air entrainment occurred in right coronary.
-Anticoagulation plan: INR goal for first 3 months 2�3 with ASA, then 1.5�2.0 and ASA for life. Reduce warfarin to 5 mg daily (recognizing a 2-3 day lag between doses and INR response).
-Incentive spirometry, ambulation.
-Start furosemide 40 mg IV and monitor response.
#Prior HTN
-Chronic, stable.
#Prior alcoholism
-Chronic, stable.
-Continued sobriety encouraged.
#iRBBB
#DAVID/CPAP
Subjective/Interval History:
Weight up 1.8 kg from lowest here.
All cell lines are down.
Na down to 130.
INR up to 1.94.
Patient received 7 mg warfarin yesterday.
DATA:
Cardiac Catheterization, 09/18/2023:
CONCLUSIONS
1. Right dominant circulation with minor luminal irregularities throughout the entire coronary tree.
2. Moderate to severe aortic root dilation.
3. Severe aortic valve insufficiency.
4. Severely elevated filling pressures (LVEDP = 25 mmHg) with a rapid upward slope from the LV diastolic pressure of 5 mmHg, consistent with severe aortic valve insufficiency as well as evidence of diastolic dysfunction (A wave to 45 mmHg).
TTE, 09/17/2023:
CONCLUSIONS
Hyperdynamic systolic function. Left ventricular ejection fraction is 65-70%.
Severe aortic regurgitation. The aortic valve does not appear to coapt.
Dilated aortic root (4.8 cm) with normal ascending aorta
No prior study available for comparison.
CTPA, 09/17/2023:
IMPRESSION:
1. No evidence of pulmonary embolism.
2. Mild pneumonia throughout the right lung.
3. Small right and trace left pleural effusions
The aortic root measures up to 4.4 cm.
Physical Exam
Vital Signs/Labs
Vital Signs
Temp Pulse Resp BP Pulse Ox
37.0 C 89 16 117/71 95
09/22/23 04:00 09/22/23 04:30 09/22/23 04:00 09/22/23 03:46 09/22/23 06:03
09/20/23 09/21/23 09/22/23
11:59 11:59 11:59
Actual Weight 109.2 kg 109.4 kg 110.2 kg
09/22/23 03:43
09/22/23 03:43
PT 22.3 Sec (11.4-14.6) H 09/22/23 03:43
PT Cancelled 09/22/23 03:43
INR 1.94 09/22/23 03:43
INR Cancelled 09/22/23 03:43
APTT 71.0 Sec (23.4-35.0) H 09/22/23 03:43
Magnesium 2.3 mg/dl (1.6-2.3) 09/22/23 03:43
Triglycerides 171 mg/dl (10-149) H 09/18/23 04:09
LDL Cholesterol, Calc 80 mg/dl 09/18/23 04:09
VLDL Cholesterol, Calc 34 mg/dl (0-30) H 09/18/23 04:09
HDL Cholesterol 34 mg/dl 09/18/23 04:09
04/14/24
11:02
Sow-C-Gaymtlfwrys Pept 2470
Physical Exam
Constitutional: No acute distress and Comfortable
EENT: Anicteric and Moist mucous membranes
Cardiovascular: Rhythm & rate is regular, Pedal edema is absent, JVD pressure is normal, S1S2 is normal (S2 is crisp and mechanical.) and Murmur/rub/gallop absent
Respiratory: Respiratory effort normal, Lungs clear to auscul., Wheeze Absent, Crackles Absent and Rhonchi Absent
GI: Soft, Distention absent, Flat, Non tender and Normal bowel sounds
Neuro/Psych: AO x 3
Data Reviewed
-
Date of Service: September 22, 2023
Medical Decision Making: Reviewed Test Results, Independent Historian Assessment and Test Interpretation
EKG: Tracing Personally Visualized and interpreted and Report Reviewed by me
Echo: Report Reviewed by me
X-Ray/CT/US/MRI/NUC/PET: Image Personally Visualized and interpreted and Report Reviewed by me
Medical Tests (PFT, Pathology etc): Report Reviewed by me
Labs: Labs Reviewed by me
Old Records: Reviewed
[2023-09-22] MEDS: MAGNESIUM OXIDE 500 MG PO ×2 (08:11→20:09)
[2023-09-22] MEDS: NEURONTIN 100 MG PO ×3 (08:11→22:30)
[2023-09-22] MEDS: PACERONE 200 MG PO ×3 (08:11→22:31)
[2023-09-22] MEDS: LOW STRENGTH ASPIRIN 81 MG PO (08:11)
[2023-09-22] MEDS: SENOKOT-S 1 TABLET PO ×2 (08:11→20:09)
[2023-09-22] MEDS: KCL 20 MEQ PO (08:11)
[2023-09-22] MEDS: LOPRESSOR 25 MG PO (08:11)
[2023-09-22] MEDS: PROTONIX 40 MG PO (08:11)
[2023-09-22] MEDS: LIDOCAINE 4% PATCH 1 PATCH TOPICAL (08:12)
[2023-09-22] MEDS: BACTROBAN 2% OINTMENT 1 APPLIC NASAL ×2 (08:12→20:09)
[2023-09-22] MEDS: LASIX 40 MG IV (08:12)
--- NOTE | 2023-09-22 10:47 | PTCARENOTE ---
assumed care of pt from previous shift RN, sinus rhythm on tele, VSS, heparin gtt discontinued as ordered. Plan of care reviewed with the pt and questions encouraged.
[2023-09-22 12:25] LABS: INR 2.25; PT 24.8 Sec (11.4-14.6)
[2023-09-22] MEDS: NSS IV (12:35)
[2023-09-22 12:43] LABS: Blood Urea Nitrogen 26 mg/dl (9-20); Calcium 7.7 mg/dl (8.4-10.2); Carbon Dioxide 32 mmol/L (22-30); Chloride 94 mmol/L (98-107); Estimated Creatinine Clearance 118 ml/min; Glucose 115 mg/dl (70-99); Sodium 131 mmol/L (135-145); eGFR > 60.00
[2023-09-22] MEDS: LIPITOR 40 MG PO (15:00)
--- NOTE | 2023-09-22 15:14 | PTCARENOTE ---
vss, sinus rhythm maintained on tele, cordis removed as ordered. pt showered without incident.
--- NOTE | 2023-09-22 15:35 | CM ---
CM following for DC planning needs.
Met w/ patient at bedside. Pt. reports that he is feeling well. He is hopeful for DC over weekend.
Reviewed DC plan for home w/ [facility] RN at residence: [address]
There are no other anticipated DC needs.
Will remain available.
[2023-09-22] MEDS: COUMADIN 5 MG PO (18:07)
[2023-09-22] MEDS: LOPRESSOR 50 MG PO (20:09)
--- NOTE | 2023-09-22 20:30 | PTCARENOTE ---
Patient received resting in bed watching television. Patient A+A+Ox3. No neurological deficits noted. Patient ambulates by self. Steady gait. No c/o headache, dizziness or lightheadedness. Room air. SaO2 94%. Four chest tube sites open to
air. Sinus Rhythm. Occasional PAC. Heart rate 90's.
No c/o chest pain, pressure or discomfort. Normoactive bowel sounds. No BM. Voiding without difficulty. Positive, palpable pulses. No c/o back or flank pain. Sternal incision - Intact - open to air. Assessment as documented.
--- NOTE | 2023-09-23 00:30 | PTCARENOTE ---
Patient sleeping without difficulty. No further changes from previous assessment.
[2023-09-23 04:13] VITALS: BP 119/84
[2023-09-23 04:15] VITALS: BP 119/84
[2023-09-23 04:40] VITALS: BMI 31.1
--- NOTE | 2023-09-23 04:45 | PTCARENOTE ---
Patient A+A+Ox3. No neurological deficits noted. Patient to bathroom. Back to bed. Standing scale weight 109.8 kg. AM lab work collected and sent. Assessment/Interventions as documented.
[2023-09-23 04:51] LABS: Hematocrit 26.2 % (39.0-52.0); Mean Corp Hgb Conc. 34.4 g/dL (33.0-37.0); Mean Corpuscular Volume 87.3 fL (80.0-94.0); Mean Platelet Volume 10.5 fL (7.4-10.4); Platelet Count 230 10^3/uL (130-400); Red Cell Dist. Width 12.5 % (11.5-14.5); White Blood Cell Count 10.1 10^3/uL (4.8-10.8)
[2023-09-23 05:04] LABS: INR 2.39; PT 25.9 Sec (11.4-14.6)
[2023-09-23 05:14] LABS: Blood Urea Nitrogen 23 mg/dl (9-20); Calcium 7.6 mg/dl (8.4-10.2); Carbon Dioxide 34 mmol/L (22-30); Chloride 95 mmol/L (98-107); Estimated Creatinine Clearance 118 ml/min; Glucose 118 mg/dl (70-99); Magnesium 2.4 mg/dl (1.6-2.3); Sodium 131 mmol/L (135-145); eGFR > 60.00
--- NOTE | 2023-09-23 05:54 | W.PN.CT ---
Addendum entered and electronically signed by Trino Gutierrez MD 09/23/23 08:57:
I saw and examined the patient.
The PA's note was reviewed and I agree with the note.
Comment:
POD#4 s/p AVR/root w/ mechanical #25 On-X, ELAA
Doing well.
INR 2.39 (Coumadin 5, 7, 5) - check INR prior to D/C today
Amio, BB, statin, ASA
D/C home today
Original Note:
Today's Communication / Plan
-
-pod #4
-no issues overnight
-Coumadin 5, 7, 5 mg. INR today 2.39
-diuresed with 40 iv Lasix on 09/21 (UO 950/2350 in 12/24 hrs)
-BB increased 50 bid
-encourage IS, OOB
-likely d/c
Assessment / Plan
-
Assessment:
-S/p Aortic valve resection/ Root replacement using a mechanical valved conduit (25mm ON-X ascending aortic graft)/Left atrial appendage ligation with 35mm clip/ Bilateral pleural drainage for effusions, by Dr. Jones, 09/19/23, pod#4
-Acute diastolic heart failure with respiratory decompensation secondary to severe acute aortic valve insufficiency
-Aortic root aneurysm measuring 4.8 cm
-Mild MR
-Sinus tachycardia/SVT
-Incomplete RBBB
-CP/MATHIS
-Hypertension
-History of EtOH abuse, in recovery for over 100 days (on naltrexone at home)
-Class 1 obesity (BMI 30.7)
-Prediabetes (hgb A1C 5.8)
-Obstructive sleep apnea (uses CPAP)
-Multiple PVCs and sinus tachycardia preoperatively
-Severely elevated LVEDP to 25 mmHg indicating significant volume overload
-Pulmonary edema and bilateral pleural effusion secondary to acute heart failure
-Preop panelipse with lucency (vancomycin added to periop abx, blood cultures obtained preop)
-S/p deviated septum repair
-Acute postop blood loss/Anemia (stable without blood transfusion)
-Acute postop atelectasis
-Acute postop hypovolemia with subsequent hypervolemia
-Acute postop ESTEFANY, 1.5
-Heparin to Coumadin bridge postop for mechanical valve
Echo 09/22/23:
Normal left ventricular size and systolic function. No regional wall motion abnormalities are seen. LV ejection fraction is 50-55% by visual assessment.
Normal right ventricular size. Normal right ventricular systolic function.
Normal atria.
Well seated, normally functioning #25 mechanical ON-X aortic valve and root replacement.
No other significant valve abnormalities are observed.
No evidence of pulmonary hypertension.
Pleural effusion present.
Compared to prior intraoperative transesophageal study of 09/19/2023, left sided
pleural effusion is observed.
Discussed patient care with: Nursing and Care Team
Subjective
Procedure
ortic valve resection/ Root replacement using a mechanical valved conduit (25mm ON-X ascending aortic graft)/Left atrial appendage ligation with 35mm clip/ Bilateral pleural drainage for effusions, by Dr. Jones, 09/19/23
-
Date of Service: September 23, 2023
Objective Data
-
PT 24.8 Sec (11.4-14.6) H 09/22/23 12:02
INR 2.25 09/22/23 12:02
APTT 71.0 Sec (23.4-35.0) H 09/22/23 03:43
Vital Signs
Vital Signs
Temp Pulse Resp BP Pulse Ox
98.9 F 81 16 117/67 94
09/22/23 22:25 09/23/23 01:00 09/22/23 22:25 09/22/23 22:31 09/22/23 22:25
CT Intake/Output/Weight
09/22/23 09/22/23 09/23/23
06:59 18:59 06:59
Intake Total 234 / 304 20 / 500 480 / 500
Output Total 1400 / 1650 250 / 1650
Balance 234 / 294 -1380 / -1150 230 / -1150
SaO2: 94
Physical Exam
-
General: Awake and AOx3
Cardiovascular: Regular rate & rhythm, No Murmurs and No Rub
Respiratory: Clear
Sternum: Stable
Incision: Clean, Dry and Intact
Extremities: Other (trace edema b/l)
Abdomen: soft, mildly distended, increased bowel sounds, no BM, + flats
Data Reviewed
-
Lab Results: Results Reviewed
Medications: Active Meds Reviewed
Chest X-Ray: Report Reviewed and Image Reviewed
ECG: Report Reviewed and Image Reviewed
[2023-09-23] MEDS: TYLENOL 1000 MG PO (06:30)
--- NOTE | 2023-09-23 07:33 | W.DCSUMMARY ---
Addendum entered and electronically signed by SEFERINO Cesar 09/23/23 09:54:
Patient had increase PACs and after a discussion with Dr. Jones he will be discharged on PO Amio 200mg Daily.
INR was repeated prior to discharge and was 2.23 from 2.39. Patient was instructed to take 7.5mg of Coumadin tonight and 5mg PO tomorrow night.
Original Note:
Discharge Summary
Discharge Data
Date of Admission: 09/17/23
Date of Discharge: 09/23/23
Total time spent discharging patient (in min): 40
-
Pending Results: No
Hospital Course
Primary care physician:
None
Outpatient refrigeration repair supervisor:
None
Inpatient consultants:
CBC, clerical coordinator, anesthesia, CT surgery
Procedures:
1. Aortic valve resection
2. Root replacement using a mechanical valved conduit (25mm ON-X ascending aortic graft)
3. Left atrial appendage ligation with 35mm clip
Primary Diagnosis:
1. Acute aortic valve insufficiency with respiratory decompensation secondary to torn noncoronary cusp with evidence of acute heart failure
Secondary Diagnoses:
1. Acute decompensated heart failure with respiratory decompensation secondary to acute aortic valve insufficiency
2. 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
3. Hypertension
4. History of alcohol abuse
5. Obstructive sleep apnea
6. Multiple PVCs and sinus tachycardia preoperatively
7. Severely elevated left ventricular end diastolic pressure to 25 mmHg indicating significant volume overload
8. Pulmonary edema and pleural effusion secondary to acute heart failure
HPI: 47-year-old male who presented to [facility] with sudden shortness of breath and respiratory failure on 09/[address] imaging and was found to have pulmonary edema and pleural effusions and then a echocardiogram showed severe
aortic valve insufficiency was taken to the CV OR by Dr. Jones on 09/18 for a aortic root and valve replacement.
Hospital course: Patient initially presented on 09/16 with respiratory failure. He was found to have severe aortic valve insufficiency and preoperative workup was initiated and was started on a Lasix infusion. Patient was then taken to the OR on
09/[address] Jones. Postoperatively patient returned to the CVICU on Precedex, insulin, dobutamine, and Levophed infusions. Preoperative panel labs did show lucency therefore, vancomycin was added and blood cultures were drawn. Precedex was weaned
off and patient was extubated by 1500. Cardiac index started to drop therefore, dobutamine was increased to 3 and he was diuresed with Lasix. He was started on aspirin. On 09/19 postoperative day #1, dobutamine was weaned off. Patient epicardial
wires were pulled, along with his indwelling catheter and pleural chest tube. He was then started on a IV heparin infusion and dosed with oral Coumadin for a target INR of 2�3. On 09/20 postoperative day #2, patient was given 7 mg of Coumadin p.o.
and heparin drip was increased every 2 hours as needed for goal PTT of 60-90. Mediastinal chest tube was removed and patient was started on oral beta-blockers. On 09/21 postoperative day #3 INR was therapeutic at 2.25 and heparin drip was
discontinued. He was diuresed with 40 mg of IV Lasix cordis was removed and patient was dosed with 5 mg of Coumadin Coumadin. On 09/22 postoperative day #4, patient's INR was 2.3 and was redosed with 5 mg of Coumadin and metoprolol succinate was
increased to 100 mg daily. Patient was redosed with 40 mg of IV Lasix and will be discharged home with oral Lasix. Patient's INR goal is 2�3 for the first 3 months and then INR goal of 1.5�2 along with aspirin.
Home medication changes:
See below
Discharge Plan
-
Patient Disposition: Home (Routine Discharge)
Discharge Diagnosis/Procedures: AVR/aortic root replacement
Condition: Good
Diet: No restrictions
Activity: No strenuous activity
Driving Restrictions: Not until seen by your Dr
Bathing Restrictions: OK to Shower
Blood Work: INR on Sunday 09/24
Other Services: Cardiac Rehab
Specialty Instructions: Weigh Daily- Call MD for wt gain/loss 3 lbs overnight/5 lbs in 1 week
Activity Restrictions/Additional Instructions:
ACTIVITY:
-No strenuous activity: no heavy lifting, pushing, pulling anything over 15 pounds for one month
-continue to use stairs as tolerated
DRIVING RESTRICTIONS:
-No driving for one month or until approved by your surgeon
WOUND CARE:
-Shower daily. Use soap & water.
-No lotions, creams or powders on incision area.
DIET:
-continue a low fat/low cholesterol diet.
-IF you are diabetic, continue carb controlled diet.
CARDIAC REHAB:
-Please make appointment to start in 5-6 weeks with your local hospital program. (See Cardiac Rehabilitation Discharge Booklet).
SPECIALTY INSTRUCTIONS:
-Weigh yourself daily. Call your physician for any weight gain/loss of 3 lbs overnight or 5 lbs in one week.
-REPORT any clicking noise or uneven appearance of your sternum to your surgeon immediately.
-If you smoke, you are instructed to quit. The [place] smoking hotline phone number is [phone]
Stand Alone Forms: DC Instructions- Cath/EP Lab
Referrals:
CT Transitional Care Nurse [Outside] (The Cardiothoracic Transitional Care Nurse will call you to set up a visit in 1-2 days.)
[facility] [Outside] - 10/26/23 1:00 pm
(Cardiac Rehab Orientation appointment is on 10/26/23 at 1:00 pm
The Cardiac Rehab gym is located on the first floor of the [facility].)
Anya Mattson NP [Specified Professional Personl] - 11/07/23 9:40 am
Raul Littlejohn MD [Active] - (DAVID dx 10 y ago through [facility] at [facility], rec CPAP but never got device. Agrees to be reevaluated at [facility] in 2-3 m p d/c (AVR))
Cesar Jones MD [Active] - 10/25/23 2:00 pm
UNKNOWN - PT DOES,NOT KNOW [Family Provider] -
Additional Discharge Medication Instructions: Someone will check your INR on Monday and then you can take your coumadin will be dose.
Your INR goal for the first 3 months after your procedure is 2-3
After the first 3 months your INR goal will be 1.5-2
You will be on aspirin along with your coumadin
Avoid Aleve for at least 1 week after discharge
Prescriptions:
New
atorvastatin 40 mg Tablet
40 mg PO QPM Qty: 30 1RF
pantoprazole 40 mg Tablet,Delayed Release (Dr/Ec)
40 mg PO DAILY Qty: 30 1RF
aspirin [Children's Aspirin] 81 mg Tablet,Chewable
81 mg PO DAILY Qty: 0 0RF
metoprolol succinate 100 mg Tablet Extended Release 24 Hr
100 mg PO DAILY Qty: 60 0RF
acetaminophen [Tylenol Extra Strength] 500 mg Tablet
1,000 mg PO TID@0600,1400,2200 Qty: 0 0RF
warfarin [Jantoven] 5 mg Tablet
5 mg PO QPM Qty: 30 0RF
potassium chloride 10 mEq capsule, extended release
10 meq PO DAILY Qty: 5 0RF
furosemide [Lasix] 20 mg tablet
20 mg PO DAILY Qty: 5 0RF
Continued
naltrexone 50 mg Tablet
50 mg PO QPM
Patient Comments:
09/17/2023, per pt., he gets this medication online through [employer] and he bought a year's supply.
Discontinued
acetaminophen [Tylenol] 325 mg Tablet
650 mg PO DAILYPRN PRN (Reason: mild pain)
naproxen sodium [Aleve] 220 mg Capsule
440 mg PO DAILY PRN (Reason: mild pain)
Discharge Orders:
Discharge Patient (As Directed); Ordered 09/23/23
Ordered By: Suzanna Cavanaugh
Care Plan Goals
Care Plan Goals:
Problem: Readiness for enhanced knowledge related to diagnosis and treatment plan
Goal: Understand your diagnosis and treatment plan needs, including medications if applicable.
Instructions: Know your diagnosis, underlying causes and treatment plan options, including medications if applicable. Consult with your health care team to learn about your diagnosis and treatment plan, including medications if applicable.
Discharge Date and Time
Print Language: TURKMEN
[2023-09-23 07:45] VITALS: BP 128/76
--- NOTE | 2023-09-23 07:45 | PTCARENOTE ---
Resumed care of patient. Pt assessed while he was lying in bed. Pt alert and oriented x4. Pt rates sternal pain 5/10-pt states its tolerable. Denies nausea and shortness of breath. LEE with equal strength throughout. NSR on tele with rates in the
80s. BP stable 128/76. +click. Bilateral radial and DP pulses palpable. No edema noted. POX 96%. Lungs diminished. IS encouraged-1500mL achieved. Abdomen soft, round, nontender. +BS. Pt reports BM last night. Pt voiding independently, reports no
issues. Sternal incision approximated with surgical glue intact. Old chest tube sites open, not approximated, no drainage. Right AC 20g PIV. See MAR for medication administration. See worklist for complete nursing assessment. Plan of care reviewed
and patient in agreement.
[2023-09-23] MEDS: FLUSH (NSS) 1 FLUSH IV (07:48)
[2023-09-23] MEDS: PROTONIX 40 MG PO (07:49)
[2023-09-23] MEDS: LASIX 40 MG IV (07:49)
[2023-09-23] MEDS: TOPROL XL 100 MG PO (07:49)
[2023-09-23] MEDS: LIDOCAINE 4% PATCH 1 PATCH TOPICAL (07:49)
[2023-09-23] MEDS: NEURONTIN 100 MG PO (07:49)
[2023-09-23] MEDS: LOW STRENGTH ASPIRIN 81 MG PO (07:49)
[2023-09-23] MEDS: KLOR-CON 20 MEQ PO (07:49)
[2023-09-23] MEDS: MAGNESIUM OXIDE 500 MG PO (07:49)
[2023-09-23] MEDS: PACERONE 200 MG PO (07:50)
[2023-09-23] MEDS: SENOKOT-S 1 TABLET PO (07:50)
[2023-09-23] MEDS: BACTROBAN 2% OINTMENT 1 APPLIC NASAL (07:50)
[2023-09-23 08:00] VITALS: BP 128/76
[2023-09-23 09:47] LABS: INR 2.23; PT 24.5 Sec (11.4-14.6)
--- NOTE | 2023-09-23 09:48 | PTCARENOTE ---
Discharge order received. Instructions reviewed with patient. All questions answered. PIV removed. INR sent.
== END 2023-09-23 09:58 | disposition home or self-care (01) | DRG 216 ==
LOC: CVICU 13:55
PROVIDERS: Anesthesiology; Clinical Nurse Specialist Acute Care; Clinical Nurse Specialist Family Health; Internal Medicine; Internal Medicine Cardiovascular Disease; Nurse Practitioner; Physician Assistant Medical; Student in an Organized Health Care Education/Training Program; ADMITTING PHYSICIAN Internal Medicine; ATTENDING PHYSICIAN Thoracic Surgery (Cardiothoracic Vascular Surgery); CONSULT PHYSICIAN Internal Medicine Cardiovascular Disease; EMERGENCY PHYSICIAN Emergency Medicine; OTHER PHYSICIAN Internal Medicine Pulmonary Disease
PROC: B3101ZZ Fluoroscopy of Thoracic Aorta using Low Osmolar Contrast (ICD-10-PCS; 2023-09-18)
PROC: B2111ZZ Fluoroscopy of Multiple Coronary Arteries using Low Osmolar Contrast (ICD-10-PCS; 2023-09-18)
PROC: 4A023N7 Measurement of Cardiac Sampling and Pressure, Left Heart, Percutaneous Approach (ICD-10-PCS; 2023-09-18)
PROC: 02RX0JZ Replacement of Thoracic Aorta, Ascending/Arch with Synthetic Substitute, Open Approach (ICD-10-PCS; 2023-09-19)
PROC: 5A1221Z Performance of Cardiac Output, Continuous (ICD-10-PCS; 2023-09-19)
PROC: 02L70CK Occlusion of Left Atrial Appendage with Extraluminal Device, Open Approach (ICD-10-PCS; 2023-09-19)
PROC: B24BZZ4 Ultrasonography of Heart with Aorta, Transesophageal (ICD-10-PCS; 2023-09-19)
DX: I35.1 Nonrheumatic aortic (valve) insufficiency (principal); I50.31 Acute diastolic (congestive) heart failure; J96.91 Respiratory failure, unspecified with hypoxia; D62 Acute posthemorrhagic anemia; I47.10 Supraventricular tachycardia, unspecified; J91.8 Pleural effusion in other conditions classified elsewhere; Q25.43 Congenital aneurysm of aorta; J98.11 Atelectasis; I11.0 Hypertensive heart disease with heart failure; G47.33 Obstructive sleep apnea (adult) (pediatric); F41.9 Anxiety disorder, unspecified; R73.03 Prediabetes; I49.3 Ventricular premature depolarization; F10.21 Alcohol dependence, in remission; I45.10 Unspecified right bundle-branch block; E86.1 Hypovolemia; N99.0 Postprocedural (acute) (chronic) kidney failure; Y83.4 Other reconstructive surgery as the cause of abnormal reaction of the patient, or of later complication, without mention of misadventure at the time of the procedure; Z11.52 Encounter for screening for COVID-19; Z79.899 Other long term (current) drug therapy; Z87.891 Personal history of nicotine dependence; Z91.199 Patient's noncompliance with other medical treatment and regimen due to unspecified reason
CPT/HCPCS: 88304; 88305; 93308; 70355; 71045; 71046; 71275; 80048; 80053; 80061; 81003; 82330; 82565; 82805; 82810; 82947; 82962; 83036; 83735; 83880; 84132; 84145; 84302; 84484; 84520; 85014; 85018; 85025; 85027; 85049; 85379; 85610; 85730; 86850; 86900; 86901; 86920; 87040; 87811; 93005; 93306; 93312; 93320; 93321; 93325; 93458; 94002; 96374; 96375; 97116; 97163; 97167; 97530; 97535; 99291; C1894; Q9967

== ENCOUNTER → 2023-09-28 16:30 | Outpatient (REF) | payer OTHER, SELFPAY ==
[2023-09-28 17:10] LABS: % Basophils 0.2 % (0-2); % Eosinophils 0.8 % (0-6); % Immature Granulocytes 0.6 % (0-0.5); % Lymphocytes 11.5 % (20.5-51.1); % Monocytes 6.8 % (1.7-9.3); % Neutrophils 80.1 % (42.2-75.2); Absolute Eosinophils 0.1 10^3/uL (0-0.7); Absolute Immature Granulocytes 0.1 10^3/uL (0-0.05); Absolute Lymphocytes 1.5 10^3/uL (1.2-3.4); Absolute Monocytes 0.9 10^3/uL (0.1-0.6); Absolute Neutrophils 10.4 10^3/uL (1.4-6.5); Hematocrit 28.3 % (39.0-52.0); Hemoglobin 9.4 g/dL (13.0-18.0); Mean Corp Hgb Conc. 33.2 g/dL (33.0-37.0); Mean Corpuscular Hgb 28.2 pg (27.0-31.0); Mean Platelet Volume 8.6 fL (7.4-10.4); Nucleated Red Blood Cells % 0 % (-); Platelet Count 487 10^3/uL (130-400); Red Blood Cell Count 3.33 10^6/uL (4.70-6.10); Red Cell Dist. Width 13.3 % (11.5-14.5)
[2023-09-28 17:26] LABS: Blood Urea Nitrogen 22 mg/dl (9-20); Calcium 8.6 mg/dl (8.4-10.2); Carbon Dioxide 28 mmol/L (22-30); Glucose 107 mg/dl (70-99); eGFR > 60.00
[2023-09-28 17:45] LABS: Chloride 96 mmol/L (98-107); Potassium 4.4 mmol/L (3.5-5.1); Sodium 132 mmol/L (135-145)
== END ==
LOC: REG 16:30
PROVIDERS: ATTENDING PHYSICIAN Thoracic Surgery (Cardiothoracic Vascular Surgery); FAMILY PHYSICIAN Family Medicine
DX: Z09 Encounter for follow-up examination after completed treatment for conditions other than malignant neoplasm (principal)
CPT/HCPCS: 36415; 80048; 85025

== ENCOUNTER → 2023-10-02 10:28 | Outpatient (REF) | payer OTHER, SELFPAY ==
[2023-10-02 11:35] LABS: INR 2.69; PT 28.5 Sec (11.4-14.6)
== END ==
LOC: REG 10:28
PROVIDERS: ATTENDING PHYSICIAN Internal Medicine Cardiovascular Disease; FAMILY PHYSICIAN Family Medicine
DX: Z95.2 Presence of prosthetic heart valve (principal)
CPT/HCPCS: 36415; 85610

== ENCOUNTER → 2023-10-10 08:52 | Outpatient (REF) | payer OTHER, SELFPAY ==
[2023-10-10 09:58] LABS: INR 2.17; PT 24.1 Sec (11.4-14.6)
== END ==
LOC: REG 08:52
PROVIDERS: ATTENDING PHYSICIAN Internal Medicine Cardiovascular Disease; FAMILY PHYSICIAN Family Medicine
DX: Z95.2 Presence of prosthetic heart valve (principal)
CPT/HCPCS: 36415; 85610

== ENCOUNTER → 2023-11-06 08:02 | Outpatient (REF) | payer OTHER, SELFPAY ==
[2023-11-06 08:50] LABS: INR 2.49; PT 26.8 Sec (11.4-14.6)
== END ==
LOC: REG 08:02
PROVIDERS: ATTENDING PHYSICIAN Internal Medicine Cardiovascular Disease; FAMILY PHYSICIAN Family Medicine
DX: Z95.2 Presence of prosthetic heart valve (principal)
CPT/HCPCS: 36415; 85610

== ENCOUNTER 2023-12-01 17:38 | Outpatient (RCR) | payer BC, SELFPAY | END 2023-12-01 23:59 | disposition home or self-care (01) | LOC: CRHB 17:38 | PROVIDERS: ATTENDING PHYSICIAN Internal Medicine | DX: Z95.4 Presence of other heart-valve replacement (principal) | CPT/HCPCS: 93797; 93798 ==

== ENCOUNTER → 2023-12-08 13:47 | Outpatient (REF) | payer BC, OTHER, SELFPAY | LOC: RCS 13:47 | PROVIDERS: ATTENDING PHYSICIAN Nurse Practitioner; FAMILY PHYSICIAN Family Medicine | DX: I49.1 Atrial premature depolarization (principal); Z95.2 Presence of prosthetic heart valve; I10 Essential (primary) hypertension | CPT/HCPCS: 93306 ==

== ENCOUNTER 2023-12-20 17:27 | Outpatient (RCR) | payer BC, OTHER, SELFPAY | END 2023-12-20 23:59 | disposition home or self-care (01) | LOC: CRHB 17:27 | PROVIDERS: ATTENDING PHYSICIAN Internal Medicine Cardiovascular Disease; FAMILY PHYSICIAN Family Medicine | DX: Z95.4 Presence of other heart-valve replacement (principal) | CPT/HCPCS: 93798 ==

== ENCOUNTER → 2024-02-21 11:52 | Outpatient (REF) | payer BC, OTHER, SELFPAY | LOC: DHSLP 11:52 | PROVIDERS: ATTENDING PHYSICIAN Internal Medicine Critical Care Medicine; FAMILY PHYSICIAN Family Medicine | DX: G47.33 Obstructive sleep apnea (adult) (pediatric) (principal); G47.31 Primary central sleep apnea; R06.02 Shortness of breath | CPT/HCPCS: 95810 ==

== ENCOUNTER → 2024-04-15 06:32 | Outpatient (REF) | payer BC, OTHER, SELFPAY | LOC: RAD 06:32 | PROVIDERS: ATTENDING PHYSICIAN Thoracic Surgery (Cardiothoracic Vascular Surgery); FAMILY PHYSICIAN Family Medicine | DX: Z95.2 Presence of prosthetic heart valve (principal) | CPT/HCPCS: 71275; Q9967 ==

== ENCOUNTER → 2024-09-18 11:02 | Outpatient (REF) | payer OTHER, SELFPAY | LOC: RCS 11:02 | PROVIDERS: ATTENDING PHYSICIAN Internal Medicine; FAMILY PHYSICIAN Family Medicine | DX: Z95.2 Presence of prosthetic heart valve (principal); I25.10 Atherosclerotic heart disease of native coronary artery without angina pectoris; I45.10 Unspecified right bundle-branch block | CPT/HCPCS: 93306 ==

== ENCOUNTER → 2025-03-27 06:58 | Outpatient (REF) | payer OTHER, SELFPAY | LOC: RCS 06:58 | PROVIDERS: ATTENDING PHYSICIAN Thoracic Surgery (Cardiothoracic Vascular Surgery); FAMILY PHYSICIAN Family Medicine | DX: Z95.2 Presence of prosthetic heart valve (principal) | CPT/HCPCS: 71275; 93306; Q9967 ==